=== PATIENT | male | born 1935 | race Caucasian/White ===

== ENCOUNTER → 2017-09-02 12:23 | Outpatient (CLI) | payer MEDICARE, SELFPAY ==
--- NOTE | 2017-09-02 | XR_ITS ---
XR KUB HISTORY: ITS.REASON: INCONTINENCE OF FECES. DIARRHEA ORDERING PHYSICIAN: Jaiden Stroud MD PATIENT AGE: 81 years COMPARISON: None FINDINGS: Unremarkable bowel gas pattern. No evidence of intestinal obstruction or significant amount of formed feces. There are severe degenerative changes of the lumbar spine. IMPRESSION: Degenerative changes lumbar spine, no acute finding
--- NOTE | 2017-09-02 12:53 | CA_ITS ---
PROCEDURE: 2-D M-mode and color Doppler study INDICATIONS FOR THE TEST: Chest pain COPD Heart Murmur Tobacco Smoking Palpitations Fatigue Syncope Edema Hypertension+Diabetes Mellitus Rheumatic Fever SOB RAMOS Obesity Hyperlipidemia+ Family History HD Additional History PATIENT INFORMATION HEIGHT: 70 WEIGHT: 211 GENDER: Male B/P: 110/60 2-D/M-MODE INTERPRETATION: 2-D MEASUREMENTS OBSERVED VALUES IN CMS Right Ventricular Dimension (RVDd) 2.6 Interventricular Septum (Thickness)(IVsd) 1.0 Left Ventricular Internal Dimensions(LVIDd) 4.0 Left Ventricular Posterior Wall (Thickness)(LVPWd) 1.0 Aortic Root 3.1 Aortic Cusp Separation 1.7 Left Atrial Dimensions (LAD) 4.2 2D 1. Left atrium is mildly enlarged, left ventricle is normal size, mild concentric left ventricular hypertrophy, visually estimated ejection fraction 55% with no obvious regional wall motion abnormality. 2. The right atrium and right ventricle is mildly enlarged with normal contractility. 3. The aortic valve is thickened and calcified leaflet continue to display mobility. 4. The mitral and tricuspid valve leaflets are minimally thickened. 5. The pulmonic valve is poorly visualized. 6. No significant pericardial effusion noted. DOPPLER INTERROGATION: Doppler interrogation of the aortic, mitral and tricuspid valvular presence of mild mitral and moderate tricuspid regurgitation, calculated right ventricular systolic pressure is 40 mmHg consistent with mild pulmonary hypertension, grade 1 diastolic dysfunction seen with tissue Doppler evidence of raised left atrial pressure. CONCLUSION: 1. Mildly enlarged left atrium, normal left ventricular size, mild concentric left ventricular hypertrophy, visually estimated ejection fraction 55% with no obvious regional wall motion abnormality, grade 1 diastolic dysfunction seen with tissue Doppler evidence of raised left atrial pressure. 2. Mild mitral and moderate tricuspid regurgitation, calculated right ventricular systolic pressure is 40 mmHg 3. No significant pericardial effusion noted.
== END ==
PROVIDERS: Family Provider Internal Medicine Adolescent Medicine; PCP Internal Medicine Adolescent Medicine; Visit Provider Internal Medicine Adolescent Medicine
DX: R06.09 Other forms of dyspnea (principal); I49.9 Cardiac arrhythmia, unspecified; R15.9 Full incontinence of feces
CPT/HCPCS: 74018; 93225; 93226; 93306

== ENCOUNTER 2020-06-04 13:20 | Observation (INO) | payer MEDICARE, SELFPAY ==
[2020-06-04] VITALS (12 sets, daily range): BP systolic 82–162; BP diastolic 51–83; PULSE 54–75; RESP 18–20; TEMP 36.6–37.1; O2SAT 94–99; BMI 27.1; BMI 20.9
--- NOTE | 2020-06-04 13:26 | HMH.EDGENADL ---
ED Disposition Clinical Impression: Syncope Qualifiers: Syncope type: unspecified Qualified Code(s): R55 - Syncope and collapse Disposition: Admitted as Observation Condition on Discharge: Good Referrals: Jaiden Stroud MD [Primary Care Provider] - - Critical Care Critical Care Time: Yes Attestation: On , the high probability of a clinically significant, sudden or life threatening deterioration of the following system(s) required my full and direct attention, intervention and personal management. The time I documented below is in addition to time spent performing reported procedures but includes the following listed in this critical care notation. Total Critical Care Time: 45 Vital system(s) involved:: Central Nervous System My critical care processes included: Assessment & monitoring of V/S, Initial and Re-exams, Data Review/Interpretation, Coordinating Care, Medication Orders and management, Documentation Medical Decision Making - Medical Records Medical records reviewed: Yes: I reviewed the patient's medical records. - Sunil Inquiry Pt receiving controlled substance: No Vital Signs: 06/04/20 13:21 06/04/20 13:37 06/04/20 13:51 Temperature 97.8 F Temperature Source Oral Pulse Rate [Left Radial] 74 75 Respiratory Rate 20 18 Blood Pressure [Orthostatic Lying Right Arm] 109/68 L Blood Pressure [Orthostatic Standing Right Arm] 82/51 L Blood Pressure [Right Arm] 119/76 119/57 L Blood Pressure Mean [Right Arm] 90 77 Blood Pressure Source [Right Arm] Automatic Cuff Automatic Cuff Blood Pressure Position [Right Arm] Sitting Sitting 02 Sat by Pulse Oximetry 96 95 Oxygen Delivery Method Room Air Room Air 06/04/20 15:04 06/04/20 16:30 06/04/20 17:00 Temperature Temperature Source Pulse Rate [Left Radial] 71 66 70 Respiratory Rate 18 19 Blood Pressure [Orthostatic Lying Right Arm] Blood Pressure [Orthostatic Standing Right Arm] Blood Pressure [Right Arm] 162/81 H 132/59 L 129/82 Blood Pressure Mean [Right Arm] 108 83 97 Blood Pressure Source [Right Arm] Blood Pressure Position [Right Arm] 02 Sat by Pulse Oximetry 94 L 99 96 Oxygen Delivery Method Room Air Room Air Room Air 06/04/20 17:30 Temperature Temperature Source Pulse Rate [Left Radial] 68 Respiratory Rate 20 Blood Pressure [Orthostatic Lying Right Arm] Blood Pressure [Orthostatic Standing Right Arm] Blood Pressure [Right Arm] 136/83 Blood Pressure Mean [Right Arm] 100 Blood Pressure Source [Right Arm] Blood Pressure Position [Right Arm] 02 Sat by Pulse Oximetry 97 Oxygen Delivery Method Room Air - Lab Data Lab Results 06/04/20 13:20: WBC 7.0, RBC 5.07, Hgb 14.5, Hct 45.9, MCV 90.6, MCH 28.6, MCHC 31.6 L, RDW 14.9, Plt Count 279, MPV 7.4, Neut % (Auto) 62.8, Lymph % (Auto) 28.5, [place] % (Auto) 6.7, Eos % (Auto) 1.5, Baso % (Auto) 0.5, Neut # (Auto) 4.4, Lymph # (Auto) 2.0, [place] # (Auto) 0.5, Eos # (Auto) 0.1, Baso # (Auto) 0.0 06/04/20 13:20: Sodium 140, Potassium 4.3, Chloride 105, Carbon Dioxide 30, Anion Gap 9.3, BUN 31 H, Creatinine 1.30 H, Estimated Creat Clear 55, Estimated GFR 53 L, Est GFR ( Amer) 64, Glucose 206 H, Calcium 9.2, Total Bilirubin 0.8, AST 38, ALT 38, Alkaline Phosphatase 146 H, Total Protein 7.0, Albumin 3.7, Globulin 3.3 H, Albumin/Globulin Ratio 1.1 06/04/20 16:53: Urine Color Yellow, Urine Appearance Clear, Urine pH 6.0, Ur Specific [place] 1.015, Urine Protein Negative, Urine Glucose (UA) 2+, Urine Ketones 1+, Urine Blood 1+, Urine Nitrate Negative, Urine Bilirubin Negative, Urine Urobilinogen 0.2, Ur Leukocyte Esterase Negative, Urine RBC 3-5, Urine WBC 5-10, Ur Squamous Epith Cells 5-10, Urine Bacteria Trace Result diagrams: 06/04/20 13:20 06/04/20 13:20 Orders (Tests/Meds): ED MEDICATIONS Generic Name Dose Route Start Last Admin Trade Name Freq PRN Reason Stop Dose Admin Acetaminophen 650 mg 06/04/20 18:11 Acetaminophen 325mg Tab PO 07/04/20 18:10
--- NOTE | 2020-06-04 13:27 | CT_ITS ---
PROCEDURE: CT HEAD/BRAIN WO CON CLINICAL INDICATION: ams Altered mental status, loss of consciousness, headache COMPARISON: No exams were available for comparison TECHNIQUE: Axial images obtained. All CT scans at the facility use one or more dose reduction, viz: automated exposure control, ma/kV adjustment per patient size (including targeted exams where dose is matched to indication, i.e. head), or iterative reconstruction technique. FINDINGS: There is no hydrocephalus. There is no hemorrhage. There is a subtle area of increased density in the left insula. This could represent an acute infarct or underlying mass lesion. MRI with and without contrast is recommended if clinical picture is unclear. There is a small area of encephalomalacia adjacent to the above described lesion is secondary to an old infarct or focal area of prominent chronic ischemic gliotic change. A tiny midline lipoma is incidentally noted. There are dense atherosclerotic calcifications in the left vertebral artery and smaller atherosclerotic calcifications in the right vertebral artery. In there are atherosclerotic calcifications associated with the bilateral internal carotid arteries as they traverse the skull-base. There is fluid in the right mastoid air cells indicating mastoiditis. Visualized portions of the paranasal sinuses are clear. Soft tissue density extends inferior to the occipital for triggering suggesting an area of contusion. IMPRESSION: Left insular abnormality suspicious for infarct versus underlying lesion. Clinical exam and MRI are more sensitive for detection of infarct. MRI with and without contrast could be obtained on emergent basis if clinically indicated or referral for stroke treatment if appropriate. Dictated by: Candis Suarez MD 06/04/2020 15:05 Candis Suarez MD in [facility] 06/04/2020 15:05
[2020-06-04 13:37] LABS: Basophils % 0.5 % (0.1-2.0); Eosinophils # 0.1 K/mm3 (0.0-0.4); Eosinophils % 1.5 % (0.1-12.0); Hematocrit 45.9 % (42.0-52.0); Hemoglobin 14.5 g/dL (14.1-18.0); Lymphocytes % 28.5 % (10-50); Mean Corpuscular HGB Conc 31.6 g/dL (31.8-35.4); Mean Corpuscular Hemoglobin 28.6 pg (27.0-31.2); Mean Corpuscular Volume 90.6 fl (80-94); Mean Platelet Volume 7.4 fl (7.4-10.4); Monocytes # 0.5 K/mm3 (0.1-1.0); Monocytes % 6.7 % (1.7-9.3); Neutrophils # 4.4 K/mm3 (1.8-7.8); Neutrophils % 62.8 % (37.0-80.0); Platelet Count 279 K/mm3 (142-424); Red Blood Count 5.07 M/mm3 (4.60-6.20); Red Cell Distribution Width 14.9 % (11.5-17.5)
[2020-06-04 13:42] LABS: Chloride 105 mmol/L (98-107)
[2020-06-04 13:43] LABS: Potassium 4.3 mmoL/L (3.5-5.1); Sodium 140 mmol/L (136-145)
[2020-06-04 13:45] LABS: Alanine Aminotransferase 38 U/L (12-78); Alkaline Phosphatase 146 U/L (38-126); Aspartate Amino Transferase 38 U/L (17-59); Bilirubin,Total 0.8 mg/dl (0.2-1.3); Blood Urea Nitrogen 31 mg/dl (9-20); Creatinine Clearance Estimated 55 mL/min (50-200); Estimated Glomerular Filt Rate 53 ml/min (>60); GFR (African American) 64 ML/MIN (>60)
[2020-06-04 13:46] LABS: Albumin Level 3.7 g/dl (3.5-5.0); Albumin/Globulin Ratio 1.1 (1.1-1.8); Anion Gap 9.3 mEq/L (5-15); Calcium 9.2 mg/dl (8.4-10.2); Carbon Dioxide 30 mmol/L (22.0-30.0); Globulin 3.3 g/dL (1.3-3.2); Glucose 206 mg/dl (74-100)
--- NOTE | 2020-06-04 13:52 | ECG_ITS ---
APPROVED REPORT Exam: Resting ECG HR:73 bpm ECG Measurements Heart Rate 73 AXES IN 378 P 36 QRSd 114 QRS -74 QT 428 T -4 QTc 471 Conclusion Sinus rhythm with 1st degree AV block Left axis deviation Low voltage QRS Right bundle branch block Abnormal ECG Electronically signed by : Jaiden Stroud, 06/04/2020 17:37:59
--- NOTE | 2020-06-04 15:04 | MR_ITS ---
PROCEDURE: MR HEAD/BRAIN WO/W CON CLINICAL INDICATION: RULE OUT STROKE COMPARISON: The same date TECHNIQUE: Routine multiplanar multi echo sequences are performed without gadolinium enhancement. This 14. Diffusion sequence was obtained. Axial T2 sequence was obtained. FLAIR sequence was performed. There is extensive motion on all sequences some of which are essentially nondiagnostic. No definite acute infarct. There is no abnormal signal in the suspicious area from CT study. There is no visible underlying lesion significant edema or mass effect in the area of the questionable CT finding. FINDINGS: IMPRESSION: Limited exam without definite MRI evidence of acute infarct, correlate clinically. No obvious underlying lesion. Underlying mass unlikely as discussed above. CT with contrast or MRI with contrast could be obtained on a nonemergent basis if clinically indicated. Dictated by: Candis Suarez 06/04/2020 16:11 Candis Suarez in [place] 06/04/2020 16:11
--- NOTE | 2020-06-04 15:32 | PC.NURSE ---
pt gone to mri
--- NOTE | 2020-06-04 15:43 | PC.NURSE ---
Attempted to insert bush cath, unable to do so at this time. MD de la cruz
[2020-06-04 17:02] LABS: Appearance,Urine CLEAR (Clear); Bilirubin,Urine Negative (Negative); Blood, Urine 1+ (Negative); Color,Urine YELLOW (Yellow); Glucose,Urine (UA) 2+ (Negative); Ketones,Urine 1+ (Negative); Leukocyte Esterase,Urine Negative (Negative); Microscopic, Urine URINE MICROSCOPIC (MICROSCOPIC); Nitrate,Urine Negative (Negative); Protein,Urine Negative (Negative); Specific Gravity, Urine 1.015 (1.005-1.030); Urobilinogen,Urine 0.2 EU/dl (0.2)
--- NOTE | 2020-06-04 17:20 | PC.NURSE ---
CODY MEDINA spoke Dr. Leslie at this time
--- NOTE | 2020-06-04 17:26 | PC.NURSE ---
notified rn house supervisor of admission.
[2020-06-04 18:17] LABS: Bacteria,Urine Trace /lpf
--- NOTE | 2020-06-05 00:40 | PC.NURSE ---
Upon assessment, patient's suprapubic area tight, distended, and applying pressure creates pain for the patient. Patient states he feels like he needs to urinate. Patient was incontinent and did have a moderate amount of urine in the bed right before assessment. Attempted to insert size 12 Slovenian coude catheter with no success. Size 8 Slovenian in and out catheter attempted with no success. Catheter seems to coil when inserted. Patient's nurse with me at bedside and stated she will notify the MD.
--- NOTE | 2020-06-05 03:59 | PC.NURSE ---
Pt. arrived to floor via stretcher at 0536
[2020-06-05 04:00] VITALS: BP 162/78; PULSE 59; RESP 20; TEMP 36.6; O2SAT 95
--- NOTE | 2020-06-05 05:43 | PC.NURSE ---
Pt. was able to recognize that he had to urinate. Pt. placed on the bsc and urinated 400ml.
--- NOTE | 2020-06-05 07:46 | HMH.PHAVTE ---
[facility] Pharmacy VTE Monitoring - Patient Demographics Admission date: 06/04/20 Report Date: 06/05/20 Time: 07:46 Allergies/Adverse Reactions: Patient Allergies No Known Allergies Allergy (Verified 05/03/20 15:26) Height: 1.96 m Weight: 80.286 kg Patient Problems: Current Active Problems Syncope (Acute) - VTE Risk Labs: VTE Related Lab Results Hgb 14.5 g/dL (14.1-18.0) 06/04/20 13:20 Hct 45.9 % (42.0-52.0) 06/04/20 13:20 Plt Count 279 K/mm3 (142-424) 06/04/20 13:20 BUN 31 mg/dl (9-20) H 06/04/20 13:20 Creatinine 1.30 mg/dl (0.66-1.25) H 06/04/20 13:20 Estimated Creat Clear 55 mL/min (50-200) 06/04/20 13:20 Was VTE Risk Assessment Performed: Yes VTE Score: 1 VTE Risk Level: Very Low Risk - Prophylaxis VTE Prophylaxis Ordered?: Yes Types of VTE Prophylaxis: IPCS Thigh High Location of Applied Device: Bilateral Lower Extremeties
--- NOTE | 2020-06-05 08:23 | HMH.HP ---
*Admission Date: 06/04/20 *Chief complaint: syncope, dizziness *History of present illness: 84yo M who originally presented to the ER deu to suspected syncopal event. Event occured at home while with his caregiver. He stepped into the shower and went numb/flaccid on left side, eyes rolled back, proceeded to pass out. BP at home unable to be determined, pulses weak. Family was called along with 911. Differential diagnosis includes was not limited to: TIA versus stroke, arrhythmia, sepsis, UTI, intracranial mass. Patient is in no acute distress on initial evaluation. His vital signs are unremarkable. He is appropriate responsive. He is able to answer basic questions and follow commands. Syncope/TIA work-up has been initiated. Radiology called with abnormal report on CT. Discussed clinical presentation with the radiologist and the fact that he would be within the window for treatment. She recommends seeing the patient for stat MRI with and without contrast. MRI was contacted and they were able to take the patient immediately for study. Per family, the patient became somewhat restless on the table and wafer fabrication technician discussed the case with radiologist. The radiologist gave the order to no longer complete the MRI with contrast. The emergency room/myself was not consulted for possible medication to allow the patient to complete the study. MRI per the radiologist as below: Limited exam without definite MRI evidence of acute infarct, correlate clinically. No obvious underlying lesion. Underlying mass. unlikely as discussed above. CT with contrast or MRI with contrast. could be obtained on a nonemergent basis if clinically indicated. Discussed all this with the family at bedside. The plan had been to admit the patient for syncopal event. Given that stroke does not show an acute stroke, will plan to continue forward with this plan. Patient's family request that MRA be completed tomorrow while the patient is still in the facility. [facility] History I have reviewed the patient's past medical history: Yes Medical History: Reports:: Dementia, Diabetes Mellitus Type 2, Hyperlipidemia Denies:: MRSA *Have you ever received a pneumonia vaccine?: Yes *Have you received a flu vaccine this season?: Yes Other Medical History: Reports: Arthritis, Cataracts, Other (alzheimers) Amputation: No - *Social History Smoking Status: Unknown if ever smoked Alcohol Intake: never Substance Use Type: denies use *Occupational Status:: retired Household Members: family *Travel in the last 8 weeks: None Family Hx:: Unable to obtain Review of Systems - Review of Systems Review of systems:: pertinent systems reviewed and negative unless documented below Meds Home Medications Medication Instructions Recorded Confirmed Type atorvastatin 10 mg tablet 10 mg PO DAILY 05/03/20 06/04/20 History donepezil 10 mg tablet 10 mg PO DAILY 05/03/20 06/04/20 History empagliflozin 25 mg-linagliptin 5 1 tab PO DAILY 05/03/20 06/04/20 History mg tablet escitalopram oxalate 5 mg tablet 5 mg PO DAILY 05/03/20 06/04/20 History furosemide 20 mg tablet 20 mg PO DAILY 05/03/20 06/04/20 History hydroxocobalamin 1,000 mcg/mL 1,000 mcg IM WEEKLY 05/03/20 06/04/20 History intramuscular solution memantine 5 mg tablet 5 mg PO HS 05/03/20 06/05/20 History omeprazole magnesium 20 mg 20 mg PO DAILY 05/03/20 06/04/20 History tablet,delayed release zinc 50 mg tablet 50 mg PO DAILY 05/03/20 06/04/20 History Aspirin 81 mg PO DAILY 06/05/20 06/05/20 History Allergies Allergy/AdvReac Type Severity Reaction Status Date / Time No Known Allergies Allergy Verified 05/03/20 15:26 Exam Vital signs and Labs for Last 24 Hours: Temp Pulse Resp BP Pulse Ox 97.8 F 59 L 20 162/78 H 95 06/05/20 04:00 06/05/20 04:00 06/05/20 04:00 06/05/20 04:00 06/05/20 04:00 Laboratory Results - last 24 hr 06/04/20 13:20: WBC 7.0, RBC 5.07, Hgb 14.5, Hct 45.9, MCV 90.6, MCH 28.6
[2020-06-05 08:30] VITALS: BP 176/69; PULSE 62; RESP 17; TEMP 36.4; O2SAT 97
[2020-06-05 08:32] LABS: POC Glucose,Bedside 148 (70-110)
[2020-06-05 11:01] LABS: POC Glucose,Bedside 201 (70-110)
--- NOTE | 2020-06-05 11:40 | PC.NURSE ---
Went in to insert f/c per MD order, pt refused f/c and urinated on the floor and in his bed, linens changed, depends put on pt, no needs at this time.
--- NOTE | 2020-06-05 14:45 | PC.NURSE ---
Pt transported to floor via , report given to paco Nino
[2020-06-05 14:57] LABS: Basophils % 0.5 % (0.1-2.0); Chloride 102 mmol/L (98-107); Eosinophils # 0.1 K/mm3 (0.0-0.4); Eosinophils % 0.8 % (0.1-12.0); Hematocrit 44.1 % (42.0-52.0); Hemoglobin 13.4 g/dL (14.1-18.0); Lymphocytes # 1.3 K/mm3 (0.7-4.5); Lymphocytes % 17.1 % (10-50); Mean Corpuscular HGB Conc 30.5 g/dL (31.8-35.4); Mean Corpuscular Hemoglobin 27.9 pg (27.0-31.2); Mean Corpuscular Volume 91.6 fl (80-94); Mean Platelet Volume 7.8 fl (7.4-10.4); Monocytes # 0.6 K/mm3 (0.1-1.0); Monocytes % 7.5 % (1.7-9.3); Neutrophils # 5.7 K/mm3 (1.8-7.8); Neutrophils % 74.1 % (37.0-80.0); Platelet Count 252 K/mm3 (142-424); Red Blood Count 4.82 M/mm3 (4.60-6.20); Red Cell Distribution Width 14.8 % (11.5-17.5); White Blood Count 7.7 K/mm3 (4.8-10.8)
[2020-06-05 14:58] LABS: Potassium 4.3 mmoL/L (3.5-5.1); Sodium 138 mmol/L (136-145)
[2020-06-05 15:00] LABS: Alanine Aminotransferase 27 U/L (12-78); Aspartate Amino Transferase 30 U/L (17-59); Blood Urea Nitrogen 26 mg/dl (9-20); Creatinine Clearance Estimated 45 mL/min (50-200); Estimated Glomerular Filt Rate 48 ml/min (>60); GFR (African American) 59 ML/MIN (>60)
[2020-06-05 15:01] LABS: Albumin Level 3.6 g/dl (3.5-5.0); Albumin/Globulin Ratio 1.3 (1.1-1.8); Alkaline Phosphatase 131 U/L (38-126); Anion Gap 9.3 mEq/L (5-15); Bilirubin,Total 0.9 mg/dl (0.2-1.3); Calcium 8.9 mg/dl (8.4-10.2); Carbon Dioxide 31 mmol/L (22.0-30.0); Globulin 2.7 g/dL (1.3-3.2); Glucose 208 mg/dl (74-100); Magnesium 2.1 mg/dl (1.6-2.3); Total Protein,Serum 6.3 g/dl (6.3-8.2)
--- NOTE | 2020-06-05 15:43 | HMH.HPDC ---
General - General Admission date:: 06/04/20 Discharge date: 06/05/20 *Admission Date: 06/04/20 *Chief complaint: syncope *History of present illness: 84yo M who originally presented to the ER deu to suspected syncopal event. Event occured at home while with his caregiver. He stepped into the shower and went numb/flaccid on left side, eyes rolled back, proceeded to pass out. BP at home unable to be determined, pulses weak. Family was called along with 911. On arrival to the ER, patient had no appreciated focal deficits but work-up for TIA and syncope initiated. Patient noted to have orthostatic hypotension on orthostatic vitals. Imaging of head showed concern on CT for possible lesion vs stroke in left insular region. MRI obtained, though motion made slight impact on the image and inability to perform MRA. Patient was admitted for further monitoring and to consider sedation with MRA today. Patient did well overnight, had no further events. Had no focal neurologic findings on assessment this morning. View of imaging showed no acute stroke/definitive evidence of acute stroke. On interview this morning patient had stable and appropriate vital signs, appropriate response to questions, and able to answer basic questions and follow commands. [facility] History I have reviewed the patient's past medical history: Yes Medical History: Reports:: Dementia, Diabetes Mellitus Type 2, Hyperlipidemia Denies:: MRSA *Have you ever received a pneumonia vaccine?: Yes *Have you received a flu vaccine this season?: Yes Other Medical History: Reports: Arthritis, Cataracts, Other (alzheimers) Amputation: No - *Social History Smoking Status: Unknown if ever smoked Alcohol Intake: never Substance Use Type: denies use *Occupational Status:: retired Household Members: family *Travel in the last 8 weeks: None Family Hx:: Unable to obtain Review of Systems - Review of Systems Review of systems:: pertinent systems reviewed and negative unless documented below (14 point review of systems performed, pertinent positives and negatives as per HPI) Exam Vital signs and Labs for Last 24 Hours: Temp Pulse Resp BP Pulse Ox 97.5 F L 62 17 176/69 H 97 06/05/20 08:30 06/05/20 08:30 06/05/20 08:30 06/05/20 08:30 06/05/20 08:30 Laboratory Results - last 24 hr 06/04/20 16:53: Urine Color Yellow, Urine Appearance Clear, Urine pH 6.0, Ur Specific [place] 1.015, Urine Protein Negative, Urine Glucose (UA) 2+, Urine Ketones 1+, Urine Blood 1+, Urine Nitrate Negative, Urine Bilirubin Negative, Urine Urobilinogen 0.2, Ur Leukocyte Esterase Negative, Urine RBC 3-5, Urine WBC 5-10, Ur Squamous Epith Cells 5-10, Urine Bacteria Trace 06/05/20 06:41: POC Glucose 148 H 06/05/20 10:54: POC Glucose 201 H 06/05/20 14:29: WBC 7.7, RBC 4.82, Hgb 13.4 L, Hct 44.1, MCV 91.6, MCH 27.9, MCHC 30.5 L, RDW 14.8, Plt Count 252, MPV 7.8, Neut % (Auto) 74.1, Lymph % (Auto) 17.1, [place] % (Auto) 7.5, Eos % (Auto) 0.8, Baso % (Auto) 0.5, Neut # (Auto) 5.7, Lymph # (Auto) 1.3, [place] # (Auto) 0.6, Eos # (Auto) 0.1, Baso # (Auto) 0.0 06/05/20 14:29: Sodium 138, Potassium 4.3, Chloride 102, Carbon Dioxide 31 H, Anion Gap 9.3, BUN 26 H, Creatinine 1.40 H, Estimated Creat Clear 45, Estimated GFR 48 L, Est GFR ( Amer) 59, Glucose 208 H, Calcium 8.9, Magnesium 2.1, Total Bilirubin 0.9, AST 30, ALT 27 D, Alkaline Phosphatase 131 H, Total Protein 6.3, Albumin 3.6, Globulin 2.7, Albumin/Globulin Ratio 1.3 I & O for Last 24 hours: Intake & Output 06/02/20 06/03/20 06/04/20 06/05/20 23:59 23:59 23:59 23:59 Intake Total 480 / 480 Output Total 400 / 400 Balance 80 / 80 Weight 80.286 kg Microbiology Reports for the Last 24 Hours: Microbiology 06/04/20 17:30 Nasopharyngeal Coronavirus COVID-19 PCR - Final - Constitutional no acute distress - *Routine HEENT Exam Head: Present: normocephalic Eye: Present: EOMI, PERRL ENT: Present: mucous membranes moist
[2020-06-05 16:00] VITALS: BP 170/65; PULSE 67; RESP 18; TEMP 36.8; O2SAT 98
== END 2020-06-05 17:00 | disposition home or self-care (01) ==
LOC: ER 18:30 → ICU 22:08 → 2ND 06-05 15:17
PROVIDERS: Internal Medicine Adolescent Medicine; Admitting Provider Family Medicine; Emergency Provider Family Medicine; PCP Internal Medicine Adolescent Medicine; Visit Provider Internal Medicine Adolescent Medicine
DX: R55 Syncope and collapse (principal); U07.1 COVID-19; E11.9 Type 2 diabetes mellitus without complications; E78.5 Hyperlipidemia, unspecified; Z79.899 Other long term (current) drug therapy
CPT/HCPCS: 36415; 70450; 70551; 80053; 81001; 82962; 83735; 85025; 93005; 99285; G0378; U0003

== ENCOUNTER → 2020-09-21 12:38 | Outpatient (CLI) | payer MEDICARE, SELFPAY ==
[2020-09-21 13:06] LABS: Basophils % 0.4 % (0.1-2.0); Eosinophils # 0.1 K/mm3 (0.0-0.4); Hematocrit 38.3 % (42.0-52.0); Hemoglobin 12.6 g/dL (14.1-18.0); Lymphocytes # 1.2 K/mm3 (0.7-4.5); Lymphocytes % 17.9 % (10-50); Mean Corpuscular HGB Conc 32.9 g/dL (31.8-35.4); Mean Corpuscular Hemoglobin 29.2 pg (27.0-31.2); Mean Corpuscular Volume 88.8 fl (80-94); Mean Platelet Volume 7.9 fl (7.4-10.4); Monocytes # 0.5 K/mm3 (0.1-1.0); Neutrophils # 4.7 K/mm3 (1.8-7.8); Neutrophils % 72.7 % (37.0-80.0); Platelet Count 210 K/mm3 (142-424); Red Blood Count 4.32 M/mm3 (4.60-6.20); Red Cell Distribution Width 14.7 % (11.5-17.5); White Blood Count 6.5 K/mm3 (4.8-10.8)
[2020-09-21 13:33] LABS: Hemoglobin A1C 8.3 % (4.0-6.0)
[2020-09-21 13:35] LABS: Alanine Aminotransferase 20 U/L (12-78); Albumin Level 3.4 g/dl (3.5-5.0); Albumin/Globulin Ratio 1.4 (1.1-1.8); Alkaline Phosphatase 160 U/L (38-126); Anion Gap 13.1 mEq/L (5-15); Aspartate Amino Transferase 25 U/L (17-59); Bilirubin,Total 0.8 mg/dl (0.2-1.3); Blood Urea Nitrogen 32 mg/dl (9-20); Calcium 8.1 mg/dl (8.4-10.2); Carbon Dioxide 26 mmol/L (22.0-30.0); Chloride 102 mmol/L (98-107); Chol/HDL Ratio 2.6 (1-3.5); Cholesterol 103 mg/dl (140-200); Estimated Glomerular Filt Rate 64 ml/min (>60); GFR (African American) 77 ML/MIN (>60); Globulin 2.4 g/dL (1.3-3.2); Glucose 184 mg/dl (74-100); HDL Cholesterol 40 mg/dl (40-60); Potassium 5.1 mmoL/L (3.5-5.1); Sodium 136 mmol/L (136-145); Total Protein,Serum 5.8 g/dl (6.3-8.2); Triglycerides 66 mg/dl (30-150); VLDL Cholesterol 13 mg/dL (0-40)
[2020-09-21 13:46] LABS: Direct LDL Cholesterol 49.64 mg/dL (100-129)
== END ==
PROVIDERS: Visit Provider Internal Medicine Adolescent Medicine
DX: E11.39 Type 2 diabetes mellitus with other diabetic ophthalmic complication (principal); E78.5 Hyperlipidemia, unspecified
CPT/HCPCS: 36415; 80053; 80061; 83036; 85025

== ENCOUNTER 2020-10-06 19:53 | Observation (INO) | payer MEDICARE, SELFPAY ==
[2020-10-06] VITALS (8 sets, daily range): BP systolic 85–121; BP diastolic 37–54; PULSE 67–93; RESP 17–18; TEMP 36.8–37.3; O2SAT 93–98; BMI 25.5; BMI 26.9
--- NOTE | 2020-10-06 19:52 | XR_ITS ---
PROCEDURE INFORMATION: Exam: XR Chest Exam date and time: 10/06/2020 7:52 PM Age: 84 years old Clinical indication: Patient HX: Fever, best images due to PT not able to follow breathing instructions TECHNIQUE: Imaging protocol: XR of the chest. Views: 1 view. COMPARISON: CR KUB XR KUB 09/02/2017 12:36 PM FINDINGS: Lungs: Airspace opacity noted in the medial aspect of the upper left lung. Right lung base subsegmental atelectasis. Pleural spaces: Small right-sided pleural effusion. Heart/Mediastinum: Unremarkable. No cardiomegaly. Bones/joints: Unremarkable. IMPRESSION: 1. Upper left lung infiltrate may represent pneumonia. Limited exam due to rotation. 2. Right lung base atelectasis and minor right-sided pleural fluid.
--- NOTE | 2020-10-06 19:52 | ECG_ITS ---
APPROVED REPORT Exam: Resting ECG HR:101 bpm ECG Measurements Heart Rate 101 AXES QRSd 104 QRS -81 QT 360 T 28 QTc 466 Conclusion Accelerated Junctional rhythm with retrograde conduction Left axis deviation Low voltage QRS Incomplete right bundle branch block Possible Anterolateral infarct, age undetermined Abnormal ECG Electronically signed by : Jaiden Stroud, 10/07/2020 17:21:42
[2020-10-06 20:18] LABS: Alanine Aminotransferase 31 U/L (12-78); Albumin Level 3.4 g/dl (3.5-5.0); Alkaline Phosphatase 161 U/L (38-126); Anion Gap 13.3 mEq/L (5-15); Aspartate Amino Transferase 30 U/L (17-59); Bilirubin,Direct 0.1 mg/dl (0.0-0.4); Bilirubin,Indirect 1.1 mg/dL (0.0-0.9); Bilirubin,Total 1.2 mg/dl (0.2-1.3); Bilirubin,Unconjugated 1.1 mg/dL (0.0-1.1); Blood Urea Nitrogen 32 mg/dl (9-20); Calcium 8.1 mg/dl (8.4-10.2); Carbon Dioxide 26 mmol/L (22.0-30.0); Chloride 103 mmol/L (98-107); Creatinine Clearance Estimated 40 mL/min (50-200); Estimated Glomerular Filt Rate 45 ml/min (>60); GFR (African American) 54 ML/MIN (>60); Glucose 255 mg/dl (74-100); Potassium 5.3 mmoL/L (3.5-5.1); Sodium 137 mmol/L (136-145); Total Protein,Serum 6.1 g/dl (6.3-8.2)
--- NOTE | 2020-10-06 20:18 | HMH.EDFEV ---
ED Disposition Clinical Impression: Severe sepsis with acute organ dysfunction, Phimosis of penis CAP (community acquired pneumonia) Qualifiers: Laterality: left Lung location: upper lobe of lung Qualified Code(s): J18.9 - Pneumonia, unspecified organism Diabetes mellitus Qualifiers: Diabetes mellitus type: type 2 Diabetes mellitus snf insulin use: unspecified snf insulin use status Diabetes mellitus complication status: with other specified complication Qualified Code(s): E11.69 - Type 2 diabetes mellitus with other specified complication Disposition: Admitted as Observation Condition on Discharge: Fair Referrals: Jaiden Stroud MD [Primary Care Provider] - - Critical Care Critical Care Time: No Attestation: On 10/06/20, the high probability of a clinically significant, sudden or life threatening deterioration of the following system(s) required my full and direct attention, intervention and personal management. The time I documented below is in addition to time spent performing reported procedures but includes the following listed in this critical care notation. Medical Decision Making - Medical Records Medical records reviewed: Yes: I reviewed the patient's medical records. - Sunil Inquiry Pt receiving controlled substance: No Vital Signs: 10/06/20 19:46 10/06/20 20:16 Temperature 99.2 F Temperature Source Oral Pulse Rate 89 Pulse Rate [Right Brachial] 93 H Respiratory Rate 18 17 Blood Pressure 97/52 L Blood Pressure [Right Arm] 85/37 L Blood Pressure Mean [Right Arm] 53 Blood Pressure Source Automatic Cuff Blood Pressure Source [Right Arm] Automatic Cuff Blood Pressure Position Sitting Blood Pressure Position [Right Arm] Sitting 02 Sat by Pulse Oximetry 98 94 L Oxygen Delivery Method Room Air Room Air - Lab Data Lab results reviewed: Yes: I reviewed the patient's lab results. Lab Results 10/06/20 19:58: WBC 7.8, RBC 4.77, Hgb 13.8 L, Hct 43.0, MCV 90.2, MCH 28.9, MCHC 32.1, RDW 14.8, Plt Count 216, MPV 7.9, Neut % (Auto) 90.2 H, Lymph % (Auto) 4.6 L, [place] % (Auto) 4.8, Eos % (Auto) 0.2, Baso % (Auto) 0.2, Neut # (Auto) 7.1, Lymph # (Auto) 0.4 L, [place] # (Auto) 0.4, Eos # (Auto) 0.0, Baso # (Auto) 0.0, Total Counted 100, Neutrophils % (Manual) 76, Band Neutrophils % 15.0 H, Lymphocytes % (Manual) 2 L, Atypical Lymphs % 1.0, Monocytes % (Manual) 6, Platelet Estimate Normal, RBC Morphology Normal, ESR 18 10/06/20 19:58: Sodium 137, Potassium 5.3 H, Chloride 103, Carbon Dioxide 26, Anion Gap 13.3, BUN 32 H, Creatinine 1.50 H, Estimated Creat Clear 40, Estimated GFR 45 L, Est GFR ( Amer) 54 L, Glucose 255 H, Calcium 8.1 L, Total Bilirubin 1.2, Direct Bilirubin 0.1, Conjugated Bilirubin 0.0, Indirect Bilirubin 1.1 H, Unconjugated Bilirubin 1.1, AST 30, ALT 31, Alkaline Phosphatase 161 H, Troponin I < 0.01, C-Reactive Protein 21.3 H, Total Protein 6.1 L, Albumin 3.4 L, Procalcitonin 0.775 10/06/20 19:58: Lactate 1.9 10/06/20 19:58: NT-Pro-B Natriuret Pep 1080 H Result diagrams: 10/06/20 19:58 10/06/20 19:58 Orders (Tests/Meds): ED MEDICATIONS Generic Name Dose Route Start Last Admin Trade Name Freq PRN Reason Stop Dose Admin Lactated Ringer's 1,000 mls @ 999 mls/hr 10/06/20 20:15 10/06/20 20:20 Lactated Ringer's 1000 Ml Bag IV 10/06/20 21:15 999 mls/hr .Q1H1M CUONG Administration ORDERS Category Date Time Status Diarrhea 6-11 Panel, Cdiff PCR Stat Lab 10/06/20 20:26 Ordered Troponin I Q3H Lab 10/06/20 23:00 Ordered Troponin I Q3H Lab 10/07/20 02:00 Ordered Urinalysis and Microscopic Stat Lab 10/06/20 19:52 Ordered Blood Culture Stat Micro 10/06/20 19:58 Received - Radiology Data #1 Image(s): Chest Image Reviewed: Yes I reviewed the patient's radiology image Preliminary Findings: Abnormal (see report ) - Physician Consults Physician Consulted: darin Reason -: Admission Medical Decision Narrative: reported fever and has l
[2020-10-06 20:19] LABS: Lactic Acid 1.9 mmol/L (0.7-2.1)
[2020-10-06 20:20] LABS: Basophils % 0.2 % (0.1-2.0); Eosinophils % 0.2 % (0.1-12.0); Hemoglobin 13.8 g/dL (14.1-18.0); Lymphocytes # 0.4 K/mm3 (0.7-4.5); Lymphocytes % 4.6 % (10-50); Mean Corpuscular HGB Conc 32.1 g/dL (31.8-35.4); Mean Corpuscular Hemoglobin 28.9 pg (27.0-31.2); Mean Corpuscular Volume 90.2 fl (80-94); Mean Platelet Volume 7.9 fl (7.4-10.4); Monocytes # 0.4 K/mm3 (0.1-1.0); Monocytes % 4.8 % (1.7-9.3); Neutrophils # 7.1 K/mm3 (1.8-7.8); Neutrophils % 90.2 % (37.0-80.0); Platelet Count 216 K/mm3 (142-424); Red Blood Count 4.77 M/mm3 (4.60-6.20); Red Cell Distribution Width 14.8 % (11.5-17.5); White Blood Count 7.8 K/mm3 (4.8-10.8)
[2020-10-06 20:23] LABS: MANUAL DIFFERENTIAL MANUAL DIFFERENTIAL (MANUAL DIFF)
[2020-10-06 20:24] LABS: C-Reactive Protein 21.3 mg/L (0-4)
[2020-10-06 20:30] LABS: NT Pro Brain Natriuretic Pep. 1080 pg/mL (0-450)
[2020-10-06 20:34] LABS: Lymphocytes % 2 % (10-50); Monocytes % 6 % (2-9); Neutrophils % 76 % (42-76); Platelet Estimate Normal; RBC Morphology Normal; Total Cells Counted 100; Troponin I < 0.01 ng/ml (0.00-0.034)
[2020-10-06 20:37] LABS: Procalcitonin 0.775 ng/mL (0.0-2.0)
[2020-10-06 20:45] LABS: Erythrocyte Sedimentation Rate 18 mm/hr (0-20)
--- NOTE | 2020-10-06 21:20 | PC.NURSE ---
Dr. Mere aleman for Dr. Leslie
--- NOTE | 2020-10-06 21:23 | PC.NURSE ---
Dr. Leslie on phone with Dr. Severino
--- NOTE | 2020-10-06 21:25 | PC.NURSE ---
md on phone with pcp
[2020-10-06 21:33] LABS: Coronavirus 19, PCR Not Detected (NotDetected); Influenza A, PCR Not Detected (NotDetected); Influenza B, PCR Not Detected (NotDetected)
--- NOTE | 2020-10-06 22:44 | PC.NURSE ---
PT ARRIVED TO FLOOR VIA STRETCHER FROM ED W/STAFF AT [id number]
[2020-10-07 04:00] VITALS: BP 117/56; PULSE 60; RESP 18; TEMP 36.9; O2SAT 96
[2020-10-07 05:18] LABS: POC Glucose,Bedside 148 (70-110)
[2020-10-07 07:21] LABS: Microscopic, Urine URINE MICROSCOPIC (MICROSCOPIC)
[2020-10-07 07:23] LABS: Appearance,Urine CLEAR (Clear); Bilirubin,Urine Negative (Negative); Blood, Urine Negative (Negative); Color,Urine YELLOW (Yellow); Glucose,Urine (UA) Negative (Negative); Ketones,Urine Negative (Negative); Leukocyte Esterase,Urine Negative (Negative); Nitrate,Urine Negative (Negative); Protein,Urine 1+ (Negative); Specific Gravity, Urine >= 1.030 (1.005-1.030); Urobilinogen,Urine 0.2 EU/dl (0.2)
[2020-10-07 07:40] LABS: Basophils % 0.1 % (0.1-2.0); Eosinophils # 0.1 K/mm3 (0.0-0.4); Eosinophils % 1.9 % (0.1-12.0); Hematocrit 35.4 % (42.0-52.0); Mean Corpuscular HGB Conc 33.3 g/dL (31.8-35.4); Mean Corpuscular Hemoglobin 29.7 pg (27.0-31.2); Mean Corpuscular Volume 89.3 fl (80-94); Mean Platelet Volume 7.6 fl (7.4-10.4); Monocytes # 0.4 K/mm3 (0.1-1.0); Monocytes % 5.5 % (1.7-9.3); Neutrophils # 5.8 K/mm3 (1.8-7.8); Neutrophils % 79.5 % (37.0-80.0); Platelet Count 192 K/mm3 (142-424); Red Blood Count 3.97 M/mm3 (4.60-6.20); Red Cell Distribution Width 14.7 % (11.5-17.5); White Blood Count 7.2 K/mm3 (4.8-10.8)
[2020-10-07 07:43] LABS: Hemoglobin 11.8 g/dL (14.1-18.0)
--- NOTE | 2020-10-07 07:45 | XR_ITS ---
PROCEDURE INFORMATION: Exam: XR Left Wrist Exam date and time: 10/07/2020 7:45 AM Age: 84 years old Clinical indication: Injury or trauma; Blunt trauma (contusions or hematomas); Left; Patient HX: Fall before bring admitted to hospital. Pain in wrist; Additional info: Fall at home TECHNIQUE: Imaging protocol: XR Left wrist. Views: 3 or more views. COMPARISON: No relevant prior studies available. 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 There is no evidence of acute fracture. There is no evidence of joint malalignment or dislocation. Soft tissues: Soft tissue swelling is present. IMPRESSION: 1. 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 2. No evidence of acute fracture. 3. No evidence of acute dislocation. 4. Soft tissue swelling is present.
--- NOTE | 2020-10-07 07:45 | HMH.HP ---
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 Brought to the emergency department. Labs look fairly innocuous but was found to have an infiltrate in the right upper lung field on chest x-ray. Admitted to hospital for IV antibiotics. Daughter also notes that he had a fall at home 3 or 4 days ago, his left wrist is somewhat swollen even though he denies pain. Otherwise this morning on rounds was feeling much better. [facility] History I have reviewed the patient's past medical history: Yes Medical History: Reports:: Dementia, Diabetes Mellitus Type 2, Hyperlipidemia Denies:: Cancer, Diabetes Mellitus Type 1, MRSA *Have you ever received a pneumonia vaccine?: Yes *Have you received a flu vaccine this season?: Yes Other Medical History: Reports: Arthritis, Cataracts (removed 15+ years ago), Other (COVID-19 infection March 2020) Other Surgeries: Yes: No Previous Surgery Amputation: No - *Social History Last grade of school completed: Advanced degree Smoking Status: Unknown if ever smoked Alcohol Intake: never Substance Use Type: denies use *Occupational Status:: retired Housing: house Household Members: spouse *Travel in the last 8 weeks: None Family Hx:: No significant family history Review of Systems - Review of Systems Review of systems:: unable to obtain - *Neurologic Reports weakness, Denies localized weakness, Denies seizure-like activity Meds Home Medications Medication Instructions Recorded Confirmed Type atorvastatin 10 mg tablet 10 mg PO DAILY 05/03/20 10/06/20 History donepezil 10 mg tablet 10 mg PO DAILY 05/03/20 10/06/20 History escitalopram oxalate 5 mg tablet 5 mg PO DAILY 05/03/20 10/06/20 History memantine 5 mg tablet 5 mg PO HS 05/03/20 10/06/20 History omeprazole magnesium 20 mg 20 mg PO DAILY 05/03/20 10/06/20 History tablet,delayed release zinc 50 mg tablet 50 mg PO DAILY 05/03/20 10/06/20 History Aspirin 81 mg PO DAILY 06/05/20 10/06/20 History ascorbic acid (vitamin C) 1,000 mg 1 g PO Q6H 08/02/20 10/06/20 History tablet cyanocobalamin (vitamin B-12) 1,000 mcg IM WEEKLY ml 08/02/20 10/06/20 History 1,000 mcg/mL injection solution furosemide 20 mg tablet 20 mg PO DAILY PRN 08/02/20 10/06/20 History melatonin 5 mg capsule 3 mg PO DAILY cap 08/02/20 10/06/20 History sitagliptin 50 mg tablet 50 mg PO DAILY 08/02/20 10/06/20 History Tamsulosin HCl [Flomax 0.4mg 0.4 mg PO HS 10/06/20 10/06/20 History capsule] Allergies Allergy/AdvReac Type Severity Reaction Status Date / Time No Known Allergies Allergy Verified 08/02/20 14:52 Exam Vital signs and Labs for Last 24 Hours: Temp Pulse Resp BP Pulse Ox 98.4 F 60 18 117/56 L 96 10/07/20 04:00 10/07/20 04:00 10/07/20 04:00 10/07/20 04:00 10/07/20 04:00 Laboratory Results - last 24 hr 10/06/20 19:55: SARS-CoV-2 (PCR) Not detected, Influenza A Untype (PCR) Not detected, Influenza Type B (PCR) Not detected 10/06/20 19:58: WBC 7.8, RBC 4.77, Hgb 13.8 L, Hct 43.0, MCV 90.2, MCH 28.9, MCHC 32.1, RDW 14.8, Plt Count 216, MPV 7.9, Neut % (Auto) 90.2 H, Lymph % (Auto) 4.6 L, [place] % (Auto) 4.8, Eos % (Auto) 0.2, Baso % (Auto) 0.2, Neut # (Auto) 7.1, Lymph # (Auto) 0.4 L, [place] # (Auto) 0.4, Eos # (Auto) 0.0, Baso # (Auto) 0.0, Total Counted 100, Neutrophils % (Manual) 76, Band Neutrophils % 15.0 H, Lymphocytes % (Manual) 2 L, Atypical Lymphs % 1.0, Monocytes % (Manual) 6, Platelet Estimate Normal, RBC Morphology Normal, ESR 18 06/19/21 19:58: Sodium 137, Potassium 5.3 H, Chloride 103, Carbon Dioxide 26, Anion Gap 13.3, BUN 32 H, Creatinine 1.50 H, Estimated Creat Clear 40, Estimated GFR 45 L, Est GFR ( Amer) 54 L, Glucose 255 H,
[2020-10-07 07:54] LABS: Chloride 107 mmol/L (98-107); Potassium 4.9 mmoL/L (3.5-5.1); Sodium 137 mmol/L (136-145)
[2020-10-07 07:57] LABS: Anion Gap 11.9 mEq/L (5-15); Blood Urea Nitrogen 34 mg/dl (9-20); Carbon Dioxide 23 mmol/L (22.0-30.0); Creatinine Clearance Estimated 48 mL/min (50-200); Estimated Glomerular Filt Rate 48 ml/min (>60); GFR (African American) 59 ML/MIN (>60)
[2020-10-07 07:58] LABS: Calcium 7.6 mg/dl (8.4-10.2); Glucose 135 mg/dl (74-100)
[2020-10-07 08:00] VITALS: BP 135/88; PULSE 73; RESP 20; TEMP 36.4; O2SAT 96
--- NOTE | 2020-10-07 08:53 | HMH.PHAVTE ---
[facility] Pharmacy VTE Monitoring - Patient Demographics Admission date: 10/06/20 Report Date: 10/07/20 Time: 08:53 Allergies/Adverse Reactions: Patient Allergies No Known Allergies Allergy (Verified 08/02/20 14:52) Height: 1.78 m Weight: 84.992 kg Patient Problems: Current Active Problems CAP (community acquired pneumonia) (Acute) Severe sepsis with acute organ dysfunction (Acute) Phimosis of penis (Acute) Dementia (Acute) Swelling of left wrist (Acute) Diabetes mellitus (Chronic) - VTE Risk Labs: VTE Related Lab Results Hgb 11.8 g/dL (14.1-18.0) L D 10/07/20 07:25 Hct 35.4 % (42.0-52.0) L 10/07/20 07:25 Plt Count 192 K/mm3 (142-424) 10/07/20 07:25 BUN 34 mg/dl (9-20) H 10/07/20 07:25 Creatinine 1.40 mg/dl (0.66-1.25) H 10/07/20 07:25 Estimated Creat Clear 48 mL/min (50-200) 10/07/20 07:25 Was VTE Risk Assessment Performed: Yes VTE Risk Level: Low Risk Clinical Trial Participant: No - Prophylaxis VTE Prophylaxis Ordered?: Yes Types of VTE Prophylaxis: TEDS Knee High
--- NOTE | 2020-10-07 08:57 | HMH.PHAINT ---
HOME MEDICATION LIST VERIFICATION ATTEMPTED USING LIST FROM [facility]
[2020-10-07 11:25] LABS: POC Glucose,Bedside 170 (70-110)
--- NOTE | 2020-10-07 14:59 | PC.WOUNDNOTE ---
Pt alert to self. Sitting up in chair at this time. Family @ bedside VSS. Meds given per jun. Have spoke with Rocio in radiology to check on x ray results and as of this time 1500, they are still awaiting to be read. CB in reach. Lungs diminished in bases. Janice, bs x 4. Mx continues. Does have BLE pitting edema. Pt has walked with assistance to bathroom with walker. Pt has had a bm and urinated this shift as well.
[2020-10-07 15:07] VITALS: BP 162/84; PULSE 54; RESP 16; TEMP 36.6; O2SAT 96
[2020-10-07 16:04] LABS: POC Glucose,Bedside 153 (70-110)
[2020-10-07 20:00] VITALS: BP 168/73; PULSE 69; RESP 18; TEMP 36.9; O2SAT 97
--- NOTE | 2020-10-07 22:45 | PC.NURSE ---
[address] PATIENT AWAKE AND UP TO TOILET . TRASH AND LINENS EMPTIED. PATIENT REQUESTED CHEESE AND CRACKERS
[2020-10-08] VITALS: BP 164/78; PULSE 68; RESP 18; TEMP 36.6; O2SAT 96
[2020-10-08 00:44] LABS: POC Glucose,Bedside 172 (70-110)
[2020-10-08 00:53] LABS: Adenovirus F 40/41, stool Not Detected (NotDetected); Astrovirus Not Detected (NotDetected); Campylobacter Not Detected (NotDetected); Clostridium Difficile A/B, PCR Not Detected (NotDetected); Cryptosporidium Not Detected (NotDetected); Cyclospora Cayetanesis Not Detected (NotDetected); Entamoeba histolytica Not Detected (NotDetected); Enteroaggregative E coli Not Detected (NotDetected); Enteropathogenic E coli Not Detected (NotDetected); Enterotoxigenic E coli Not Detected (NotDetected); Giardia lamblia Not Detected (NotDetected); Norovirus Not Detected (NotDetected); Plesimonas Shigalloides, PCR Not Detected (NotDetected); Rotavirus A Not Detected (NotDetected); Salmonella, PCR Not Detected (NotDetected); Sapovirus Not Detected (NotDetected); Shiga-like toxin E coli Not Detected (NotDetected); Shigella Enterovasive E coli Not Detected (NotDetected); Vibrio Cholerae Not Detected (NotDetected); Vibrio, PCR Not Detected (NotDetected); Yersinia Entercolitica, PCR Not Detected (NotDetected)
[2020-10-08 04:00] VITALS: BP 146/62; PULSE 68; RESP 17; TEMP 36.9; O2SAT 94
--- NOTE | 2020-10-08 04:47 | PC.NURSE ---
pt is pleasantly confused. alert to self. pt ambulates with assist and walker to bathroom. pt has been incontinent and continent throughout shift. several loose bowel movements tonight. sample was obtained with negative results. iv patent and infusing per order. bed alarm is on. call light in reach. vss. will continue to monitor.
[2020-10-08 05:00] VITALS: BMI 29.4
[2020-10-08 05:33] LABS: POC Glucose,Bedside 95 (70-110)
[2020-10-08 05:53] LABS: Basophils % 0.2 % (0.1-2.0); Eosinophils # 0.2 K/mm3 (0.0-0.4); Eosinophils % 2.1 % (0.1-12.0); Hematocrit 35.7 % (42.0-52.0); Hemoglobin 11.6 g/dL (14.1-18.0); Lymphocytes # 1.5 K/mm3 (0.7-4.5); Lymphocytes % 19.4 % (10-50); Mean Corpuscular HGB Conc 32.4 g/dL (31.8-35.4); Mean Corpuscular Volume 89.5 fl (80-94); Mean Platelet Volume 7.8 fl (7.4-10.4); Monocytes # 0.6 K/mm3 (0.1-1.0); Monocytes % 7.6 % (1.7-9.3); Neutrophils # 5.3 K/mm3 (1.8-7.8); Neutrophils % 70.7 % (37.0-80.0); Platelet Count 197 K/mm3 (142-424); Red Blood Count 3.99 M/mm3 (4.60-6.20); Red Cell Distribution Width 14.7 % (11.5-17.5); White Blood Count 7.5 K/mm3 (4.8-10.8)
[2020-10-08 05:58] LABS: Chloride 109 mmol/L (98-107); Sodium 137 mmol/L (136-145)
[2020-10-08 06:01] LABS: Blood Urea Nitrogen 22 mg/dl (9-20); Calcium 7.5 mg/dl (8.4-10.2); Carbon Dioxide 21 mmol/L (22.0-30.0); Creatinine Clearance Estimated 61 mL/min (50-200); Estimated Glomerular Filt Rate 64 ml/min (>60); GFR (African American) 77 ML/MIN (>60); Glucose 98 mg/dl (74-100)
--- NOTE | 2020-10-08 06:32 | PC.NURSE ---
[address] PATIENT AWAKE AND UP TO BATHROOM. TRASH EMPTIED AND ICE WATER EMPTIED
--- NOTE | 2020-10-08 07:46 | HMH.DCSUM ---
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 Brought to the emergency department. Labs look fairly innocuous but was found to have an infiltrate in the right upper lung field on chest x-ray. Admitted to hospital for IV antibiotics. Daughter also notes that he had a fall at home 3 or 4 days ago, his left wrist is somewhat swollen even though he denies pain. Otherwise this morning on rounds was feeling much better. Hospital Course Hospital Course: Patient was admitted, initiated on azithromycin and ceftriaxone. Did well with this, no further fevers. White count improved, the rest of his labs remained essentially normal for his baseline. This morning he was doing well. Had already taken his IV out because I do not need it anymore. Wished to be discharged and his daughter concurs that he is back to his baseline. Exam remained essentially unremarkable vis-?-vis lung exam. Plan will be to discharge home on Omnicef. I will follow him in our normal housecall rounds. Objective Vital signs: Temp Pulse Resp BP Pulse Ox 98.4 F 68 17 146/62 H 94 L 10/08/20 04:00 10/08/20 04:00 10/08/20 04:00 10/08/20 04:00 10/08/20 04:00 no acute distress - *Routine HEENT Exam Head: Present: normocephalic Eye: Present: EOMI, PERRL ENT: Present: mucous membranes moist - *Routine Neck Exam Present: supple - *Routine Respiratory Exam Present: CTA bilaterally - *Routine Cardiovascular Exam Present: RRR - *Routine Abdominal Exam Present: soft, normoactive bowel sounds. Absent: tenderness - *Routine Extremities Exam Absent: cyanosis, clubbing, edema - *Routine Skin Exam Present: warm. Absent: rash - *Routine Neurological Exam Present: alert, moving all extremities, vision grossly intact, hearing grossly intact - Detailed Eye Exam Eyelids: Bilateral normal inspection Results Labs on day of discharge: Labs from last 24 hours 10/08/20 10/08/20 10/08/20 05:32 05:32 05:24 WBC 7.5 RBC 3.99 L Hgb 11.6 L Hct 35.7 L MCV 89.5 MCH 29.0 MCHC 32.4 RDW 14.7 Plt Count 197 MPV 7.8 Neut % (Auto) 70.7 Lymph % (Auto) 19.4 [place] % (Auto) 7.6 Eos % (Auto) 2.1 Baso % (Auto) 0.2 Neut # (Auto) 5.3 Lymph # (Auto) 1.5 [place] # (Auto) 0.6 Eos # (Auto) 0.2 Baso # (Auto) 0.0 Sodium 137 Potassium 4.0 Chloride 109 H Carbon Dioxide 21 L Anion Gap 11.0 BUN 22 H D Creatinine 1.10 D Estimated Creat Clear 61 Estimated GFR 64 Est GFR ( Amer) 77 D Glucose 98 D POC Glucose 95 Calcium 7.5 L Stl Aeromonas (PCR) Stl C. cayetanensis PCR Stool Rotavirus (PCR) Stl Adenov F 40/41 PCR Stool Astrovirus (PCR) Stool Campylobacter PCR Stl C.difficile Tox PCR Stool Cryptosporidium PCR Stl E.coli Shiga Tox PCR Stool E coli O157 PCR Stl Enterotoxigenic E PCR Stool EPEC (PCR) Stool EAEC (PCR) Stl E. histolytica PCR Stool Giardia Lamblia PCR Stool Salmonella PCR Stool Sapovirus (PCR) Stl P. shigelloides PCR Stl Shigella/EIEC PCR St Y.enterocolitica PCR Stool Vibrio (PCR) Stl Vibrio cholerae PCR Stl Norovirus GI/GII PCR 10/08/20 10/07/20 10/07/20 00:31 20:30 15:43 WBC RBC Hgb Hct MCV MCH MCHC RDW Plt Count MPV Neut % (Auto) Lymph % (Auto) [place] % (Auto) Eos % (Auto) Baso % (Auto) Neut # (Auto) Lymph # (Auto) [place] # (Auto) Eos # (Auto) Baso # (Auto) Sodium Potassium Chloride Carbon Dioxide Anion Gap BUN Creatinine Estimated Creat Clear Estimated GFR Est GF
== END 2020-10-08 08:20 | disposition home or self-care (01) ==
LOC: ER 21:27 → 2ND 21:35
PROVIDERS: Admitting Provider Family Medicine; Emergency Provider Emergency Medicine; PCP Internal Medicine Adolescent Medicine; Visit Provider Internal Medicine Adolescent Medicine
DX: J18.9 Pneumonia, unspecified organism (principal); Z86.16 Personal history of COVID-19; E11.9 Type 2 diabetes mellitus without complications; N47.1 Phimosis; F03.90 Unspecified dementia, unspecified severity, without behavioral disturbance, psychotic disturbance, mood disturbance, and anxiety; Z91.81 History of falling; Z79.899 Other long term (current) drug therapy; R06.09 Other forms of dyspnea
CPT/HCPCS: 71045; 73110; 80048; 80076; 81001; 82962; 83605; 83880; 84145; 84484; 85007; 85025; 85651; 86140; 87040; 87506; 93005; 96365; 96375; 99284; G0378; J0456; U0003

== ENCOUNTER → 2021-01-17 07:39 | Outpatient (CLI) | payer MEDICARE, SELFPAY ==
--- NOTE | 2021-01-17 07:45 | CA_ITS ---
APPROVED REPORT Right Lower Extremity Venous Study for DVT. Press Tender Short Goods: Ashwini Rahman, MEDINAT Indications Lower Extremity Pain: Right Lower Extremity Edema: Right RT LEG PAIM,EDEMA Vein Imaging CFV (R): compressive, spontaneous, phasic, augmentation FEM (R): compressive, spontaneous, phasic, augmentation POP (R): compressive, spontaneous, phasic, augmentation PTV (R): Compressible GSV (R): Compressible Peroneals (R):Compressible GAS (R): Compressible Findings Study suggests no evidence of DVT or SVT of the right lower extremity. Conclusion Study suggests no evidence of DVT or SVT of the right lower extremity. Electronically signed by : Adolfo Vidal MD 01/17/2021 16:17:51
[2021-01-17 08:40] LABS: Basophils % 0.5 % (0.1-2.0); Eosinophils # 0.1 K/mm3 (0.0-0.4); Eosinophils % 1.9 % (0.1-12.0); Hematocrit 39.1 % (42.0-52.0); Hemoglobin 12.6 g/dL (14.1-18.0); Lymphocytes # 1.9 K/mm3 (0.7-4.5); Lymphocytes % 26.4 % (10-50); Mean Corpuscular HGB Conc 32.2 g/dL (31.8-35.4); Mean Corpuscular Hemoglobin 30.2 pg (27.0-31.2); Mean Corpuscular Volume 93.7 fl (80-94); Mean Platelet Volume 8.5 fl (7.4-10.4); Monocytes # 0.5 K/mm3 (0.1-1.0); Monocytes % 6.7 % (1.7-9.3); Neutrophils # 4.7 K/mm3 (1.8-7.8); Neutrophils % 64.5 % (37.0-80.0); Platelet Count 175 K/mm3 (142-424); Red Blood Count 4.17 M/mm3 (4.60-6.20); Red Cell Distribution Width 14.3 % (11.5-17.5); White Blood Count 7.3 K/mm3 (4.8-10.8)
[2021-01-17 09:02] LABS: D-Dimer 1.58 ug/mL (0.0-0.5)
[2021-01-17 09:11] LABS: Hemoglobin A1C 9.7 % (4.0-6.0)
[2021-01-17 09:42] LABS: Alanine Aminotransferase 20 U/L (12-78); Albumin Level 3.1 g/dl (3.5-5.0); Albumin/Globulin Ratio 1.1 (1.1-1.8); Alkaline Phosphatase 138 U/L (38-126); Anion Gap 12.2 mEq/L (5-15); Aspartate Amino Transferase 34 U/L (17-59); Bilirubin,Total 1.1 mg/dl (0.2-1.3); Blood Urea Nitrogen 21 mg/dl (9-20); Calcium 8.1 mg/dl (8.4-10.2); Carbon Dioxide 25 mmol/L (22.0-30.0); Chloride 107 mmol/L (98-107); Chol/HDL Ratio 2.6 (1-3.5); Cholesterol 93 mg/dl (140-200); Estimated Glomerular Filt Rate 80 ml/min (>60); GFR (African American) 97 ML/MIN (>60); Globulin 2.8 g/dL (1.3-3.2); Glucose 133 mg/dl (74-100); HDL Cholesterol 36 mg/dl (40-60); Potassium 5.2 mmoL/L (3.5-5.1); Sodium 139 mmol/L (136-145); Total Protein,Serum 5.9 g/dl (6.3-8.2); Triglycerides 84 mg/dl (30-150); VLDL Cholesterol 17 mg/dL (0-40)
[2021-01-17 09:53] LABS: Direct LDL Cholesterol 44.21 mg/dL (100-129)
== END ==
PROVIDERS: PCP Internal Medicine Adolescent Medicine; Visit Provider Internal Medicine Adolescent Medicine
DX: M79.604 Pain in right leg (principal); R60.9 Edema, unspecified; E11.39 Type 2 diabetes mellitus with other diabetic ophthalmic complication; E78.5 Hyperlipidemia, unspecified; I10 Essential (primary) hypertension
CPT/HCPCS: 36415; 80053; 80061; 83036; 85025; 85378; 93971

== ENCOUNTER 2021-04-25 01:07 | Observation (INO) | payer MEDICARE, SELFPAY ==
[2021-04-25 01:21] VITALS: BP 145/71; PULSE 65; RESP 18; TEMP 36.6; O2SAT 98; BMI 29.1
[2021-04-25 02:43] LABS: Occult Blood,Stool Positive (Negative)
[2021-04-25 02:47] LABS: Chloride 103 mmol/L (98-107); Potassium 4.7 mmoL/L (3.5-5.1); Sodium 139 mmol/L (136-145)
[2021-04-25 02:49] LABS: Amylase 33 U/L (30-110); Blood Urea Nitrogen 29 mg/dl (9-20)
[2021-04-25 02:50] LABS: Alanine Aminotransferase 27 U/L (12-78); Alkaline Phosphatase 174 U/L (38-126); Anion Gap 10.7 mEq/L (5-15); Aspartate Amino Transferase 29 U/L (17-59); Bilirubin,Direct 0.1 mg/dl (0.0-0.4); Bilirubin,Indirect 0.5 mg/dL (0.0-0.9); Bilirubin,Total 0.6 mg/dl (0.2-1.3); Bilirubin,Unconjugated 0.5 mg/dL (0.0-1.1); Calcium 8.1 mg/dl (8.4-10.2); Carbon Dioxide 30 mmol/L (22.0-30.0); Creatinine Clearance Estimated 44 mL/min (50-200); Estimated Glomerular Filt Rate 45 ml/min (>60); GFR (African American) 54 ML/MIN (>60); Glucose 247 mg/dl (74-100)
[2021-04-25 02:52] LABS: Albumin Level 3.4 g/dl (3.5-5.0); Total Protein,Serum 6.1 g/dl (6.3-8.2)
[2021-04-25 02:56] LABS: C-Reactive Protein 1.2 mg/L (0-4)
[2021-04-25 03:20] LABS: Troponin I < 0.01 ng/ml (0.00-0.034)
[2021-04-25 03:23] LABS: Basophils % 0.8 % (0.1-2.0); Eosinophils # 0.1 K/mm3 (0.0-0.4); Hematocrit 42.1 % (42.0-52.0); Hemoglobin 12.8 g/dL (14.1-18.0); Lymphocytes # 1.7 K/mm3 (0.7-4.5); Lymphocytes % 32.2 % (10-50); Mean Corpuscular HGB Conc 30.4 g/dL (31.8-35.4); Mean Corpuscular Hemoglobin 29.1 pg (27.0-31.2); Mean Corpuscular Volume 95.8 fl (80-94); Mean Platelet Volume 8.8 fl (7.4-10.4); Monocytes # 0.4 K/mm3 (0.1-1.0); Monocytes % 6.9 % (1.7-9.3); Neutrophils # 3.1 K/mm3 (1.8-7.8); Neutrophils % 58.1 % (37.0-80.0); Platelet Count 213 K/mm3 (142-424); Red Cell Distribution Width 14.4 % (11.5-17.5); White Blood Count 5.3 K/mm3 (4.8-10.8)
--- NOTE | 2021-04-25 03:34 | HMH.EDGIBL ---
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 The time I documented below is in addition to time spent performing reported procedures but includes the following listed in this critical care notation. Medical Decision Making - Medical Records Medical records reviewed: Yes: I reviewed the patient's medical records. - Sunil Inquiry Pt receiving controlled substance: No Vital Signs: 04/25/21 01:21 Temperature 97.9 F Temperature Source Oral Pulse Rate [Left] 65 Respiratory Rate 18 Blood Pressure [Right Arm] 145/71 H Blood Pressure Mean [Right Arm] 95 02 Sat by Pulse Oximetry 98 - Lab Data Lab results reviewed: Yes: I reviewed the patient's lab results. Lab Results 04/25/21 01:51: WBC 5.3, RBC 4.40 L, Hgb 12.8 L, Hct 42.1, MCV 95.8 H, MCH 29.1, MCHC 30.4 L, RDW 14.4, Plt Count 213, MPV 8.8, Neut % (Auto) 58.1, Lymph % (Auto) 32.2, [place] % (Auto) 6.9, Eos % (Auto) 2.0, Baso % (Auto) 0.8, Neut # (Auto) 3.1, Lymph # (Auto) 1.7, [place] # (Auto) 0.4, Eos # (Auto) 0.1, Baso # (Auto) 0.0 04/25/21 01:51: Sodium 139, Potassium 4.7, Chloride 103, Carbon Dioxide 30, Anion Gap 10.7, BUN 29 H, Creatinine 1.50 H, Estimated Creat Clear 44, Estimated GFR 45 L, Est GFR ( Amer) 54 L, Glucose 247 H, Calcium 8.1 L, Total Bilirubin 0.6, Direct Bilirubin 0.1, Conjugated Bilirubin 0.0, Indirect Bilirubin 0.5, Unconjugated Bilirubin 0.5, AST 29, ALT 27, Alkaline Phosphatase 174 H, Troponin I < 0.01, C-Reactive Protein 1.2, Total Protein 6.1 L, Albumin 3.4 L, Amylase 33 04/25/21 01:51: Stool Occult Blood Positive A Result diagrams: 04/25/21 01:51 04/25/21 01:51 Orders (Tests/Meds): ED MEDICATIONS Generic Name Dose Route Start Last Admin Trade Name Freq PRN Reason Stop Dose Admin Sodium Chloride 1,000 mls @ 999 mls/hr 04/25/21 02:15 04/25/21 02:38 Sod Chlor 0.9% 1000ml Bag IV 04/25/21 03:15 999 mls/hr .Q1H1M CUONG Administration Sodium Chloride 1,000 mls @ 100 mls/hr 04/25/21 03:45 04/25/21 04:04 Sod Chlor 0.9% 1000ml Bag IV 04/25/21 13:44 100 mls/hr .Q10H CUONG Administration Discontinued Medications Generic Name Dose Route Start Last Admin Trade Name Freq PRN Reason Stop Dose Admin Ondansetron HCl 4 mg 04/25/21 02:10 04/25/21 02:38 Ondansetron 4mg/2ml Vial IV 04/25/21 02:11 4 mg ONCE ONE Administration ORDERS Category Date Time Status Erythrocyte Sedimentation Rate Stat Lab 04/25/21 01:51 Received Lipase Stat Lab 04/25/21 01:51 Received Procalcitonin Stat Lab 04/25/21 01:51 Received Troponin I Q3H Lab 04/25/21 05:15 Ordered Troponin I Q3H Lab 04/25/21 08:15 Ordered Urinalysis and Microscopic Stat Lab 04/25/21 02:10 Ordered - Physician Consults Physician Consulted: dinorah Reason -: Admission Medical Decision Narrative: pt with acute brrb will admit at this time and monitor h/h and bmp GI Bleed HPI - General Chief complaint: GI Bleed Stated complaint: Rectal Bleed Time Seen by Provider: 04/25/21 03:00 Mode of Arrival: Ambulatory Source of Information: Patient, Medical Record Limitations: No Limitations Description of Symptoms (Recalled from ER Triage Doc. by RN): pt family reports the pt has had rectal bleed about an hour bright red blood found with a bowel movement by home health care social worker. pt does not
[2021-04-25 04:13] LABS: Coronavirus 19, PCR Not Detected (NotDetected); Influenza A, PCR Not Detected (NotDetected); Influenza B, PCR Not Detected (NotDetected)
[2021-04-25 04:32] LABS: Procalcitonin 0.073 ng/mL (0.0-2.0)
[2021-04-25 04:39] LABS: Erythrocyte Sedimentation Rate 55 mm/hr (0-20)
[2021-04-25 05:05] VITALS: BP 141/64; PULSE 73; RESP 22; O2SAT 96
[2021-04-25 05:14] VITALS: BP 137/105; PULSE 76; RESP 14; TEMP 36.6; O2SAT 92
--- NOTE | 2021-04-25 05:20 | PC.NURSE ---
pt admitted at 0505 to 262 from ER, pt had bowel movement upon arrival, no blood in stool, stool brown, will continue to monitor
[2021-04-25 05:55] LABS: Lipase 42 U/L (23-300)
--- NOTE | 2021-04-25 07:45 | P.CONPHA_ITS ---
[facility] Pharmacy VTE Monitoring - Patient Demographics Admission date: 04/25/21 Report Date: 04/25/21 Time: 07:45 Allergies/Adverse Reactions: Patient Allergies No Known Allergies Allergy (Verified 02/28/21 14:13) Height: 1.7 m Weight: 84.368 kg Patient Problems: Current Active Problems Lower gastrointestinal hemorrhage (Acute) Renal insufficiency (Acute) Diabetes mellitus (Chronic) - VTE Risk Labs: VTE Related Lab Results Hgb 12.8 g/dL (14.1-18.0) L 04/25/21 01:51 Hct 42.1 % (42.0-52.0) 04/25/21 01:51 Plt Count 213 K/mm3 (142-424) 04/25/21 01:51 BUN 29 mg/dl (9-20) H 04/25/21 01:51 Creatinine 1.50 mg/dl (0.66-1.25) H 04/25/21 01:51 Estimated Creat Clear 44 mL/min (50-200) 04/25/21 01:51 Clinical Trial Participant: No - Prophylaxis VTE Prophylaxis Ordered?: Yes Types of VTE Prophylaxis: TEDS Knee High
[2021-04-25 08:00] VITALS: BP 128/53; PULSE 73; RESP 15; TEMP 36.4; O2SAT 94
[2021-04-25 08:31] VITALS: BMI 28.6
--- NOTE | 2021-04-25 09:17 | HMH.HP ---
*Admission Date: 04/25/21 *Chief complaint: Rectal bleeding *History of present illness: 85-year-old male who struggles with significant dementia, homebound with care from family and caregivers, also has type 2 diabetes and chronic diarrhea. Yesterday evening his caregiver noticed an extensive amount of blood both bright red liquid blood and some dark maroon-colored stool in his diaper and in the toilet bowl. His blood pressure was also in the 90s. Brought him to the hospital for evaluation. In the emergency department hemoglobin was 12, he had no visible blood and was not having abdominal pain or fever or vomiting. CT scan was determined to be a good diagnostic test but GFR was slightly low and patient was admitted to the hospital for hydration, serial CBCs and evaluation for CT scan and possible further intervention as tolerated. His daughter reports he has had 1 other stool since being admitted, it seems to be melanotic but not voluminous. [facility] History I have reviewed the patient's past medical history: Yes Medical History: Reports:: Dementia, Diabetes Mellitus Type 2, Hyperlipidemia Denies:: Cancer, Diabetes Mellitus Type 1, MRSA *Have you ever received a pneumonia vaccine?: Yes *Have you received a flu vaccine this season?: Yes Other Medical History: Reports: Arthritis, Cataracts, Other Other Surgeries: Yes: No Previous Surgery Amputation: No - *Social History Smoking Status: Former smoker Alcohol Intake: never Substance Use Type: denies use *Occupational Status:: retired Housing: house Household Members: spouse *Travel in the last 8 weeks: None Family Hx:: No significant family history Review of Systems - Review of Systems Review of systems:: unable to obtain - *Neurologic Denies seizure-like activity Meds Home Medications Medication Instructions Recorded Confirmed Type atorvastatin 10 mg tablet 10 mg PO 05/03/20 04/25/21 History donepezil 10 mg tablet 10 mg PO DAILY 05/03/20 04/25/21 History escitalopram oxalate 5 mg tablet 5 mg PO DAILY 05/03/20 04/25/21 History memantine 5 mg tablet 5 mg PO HS 05/03/20 04/25/21 History omeprazole magnesium 20 mg 20 mg PO DAILY 05/03/20 04/25/21 History tablet,delayed release zinc 50 mg tablet 50 mg PO DAILY 05/03/20 04/25/21 History Aspirin 81 mg PO DAILY 06/05/20 04/25/21 History ascorbic acid (vitamin C) 1,000 mg 1 g PO DAILY 08/02/20 04/25/21 History tablet cyanocobalamin (vitamin B-12) 1,000 mcg IM MONTHLY ml 08/02/20 04/25/21 History 1,000 mcg/mL injection solution furosemide 20 mg tablet 20 mg PO DAILY PRN 08/02/20 04/25/21 History melatonin 5 mg capsule 5 mg PO DAILY cap 08/02/20 04/25/21 History Tamsulosin HCl [Flomax 0.4mg 0.4 mg PO HS 10/06/20 04/25/21 History capsule] sitagliptin 100 mg tablet 100 mg PO DAILY 02/28/21 04/25/21 History Allergies Allergy/AdvReac Type Severity Reaction Status Date / Time No Known Allergies Allergy Verified 02/28/21 14:13 Exam Vital signs and Labs for Last 24 Hours: Temp Pulse Resp BP Pulse Ox 97.8 F 76 14 137/105 H 96 04/25/21 05:14 04/25/21 05:14 04/25/21 05:14 04/25/21 05:14 04/25/21 05:05 Laboratory Results - last 24 hr 04/25/21 01:51: WBC 5.3, RBC 4.40 L, Hgb 12.8 L, Hct 42.1, MCV 95.8 H, MCH 29.1, MCHC 30.4 L, RDW 14.4, Plt Count 213, MPV 8.8, Neut % (Auto) 58.1, Lymph % (Auto) 32.2, [place] % (Auto) 6.9, Eos % (Auto) 2.0, Baso % (Auto) 0.8, Neut # (Auto) 3.1, Lymph # (Auto) 1.7, [place] # (Auto) 0.4, Eos # (Auto) 0.1, Baso # (Auto) 0.0 04/25/21 01:51: Sodium 139, Potassium 4.7, Chloride 103, Carbon Dioxide 30, Anion Gap 10.7, BUN 29 H, Creatinine 1.50 H, Estimated Creat Clear 44, Estimated GFR 45 L, Est GFR ( Amer) 54 L, Glucose 247 H, Calcium 8.1 L, Total Bilirubin 0.6, Direct Bilirubin 0.1, Conjugated Bilirubin 0.0, Indirect Bilirubin 0.5, Unconjugated Bilirubin 0.5, AST 29, ALT 27, Alkaline Phosphatase 174 H, Troponin I < 0.01, C-Reactive Protein 1.2, Total Protein 6.1 L,
[2021-04-25 09:27] LABS: Basophils % 0.6 % (0.1-2.0); Eosinophils # 0.1 K/mm3 (0.0-0.4); Eosinophils % 1.4 % (0.1-12.0); Hematocrit 37.1 % (42.0-52.0); Hemoglobin 11.7 g/dL (14.1-18.0); Lymphocytes # 1.8 K/mm3 (0.7-4.5); Lymphocytes % 31.8 % (10-50); Mean Corpuscular HGB Conc 31.5 g/dL (31.8-35.4); Mean Corpuscular Hemoglobin 30.1 pg (27.0-31.2); Mean Corpuscular Volume 95.4 fl (80-94); Mean Platelet Volume 8.6 fl (7.4-10.4); Monocytes # 0.4 K/mm3 (0.1-1.0); Monocytes % 6.5 % (1.7-9.3); Neutrophils # 3.5 K/mm3 (1.8-7.8); Neutrophils % 59.8 % (37.0-80.0); Platelet Count 203 K/mm3 (142-424); Red Blood Count 3.89 M/mm3 (4.60-6.20); Red Cell Distribution Width 14.6 % (11.5-17.5); White Blood Count 5.8 K/mm3 (4.8-10.8)
[2021-04-25 09:36] LABS: Anion Gap 5.3 mEq/L (5-15); Blood Urea Nitrogen 27 mg/dl (9-20); Calcium 7.9 mg/dl (8.4-10.2); Carbon Dioxide 33 mmol/L (22.0-30.0); Chloride 105 mmol/L (98-107); Creatinine Clearance Estimated 54 mL/min (50-200); Estimated Glomerular Filt Rate 58 ml/min (>60); GFR (African American) 70 ML/MIN (>60); Glucose 145 mg/dl (74-100); Potassium 4.3 mmoL/L (3.5-5.1); Sodium 139 mmol/L (136-145)
--- NOTE | 2021-04-25 09:47 | CT_ITS ---
FINAL REPORT TECHNIQUE: After the administration of oral and intravenous contrast, axial images were obtained through the abdomen and pelvis by computed tomography. The study was performed with techniques to keep radiation dose as low as reasonably achievable, (ALARA). Individual dose reduction techniques using automated exposure control or adjustment of mA and/or kV according to the patient's size were employed. CLINICAL HISTORY: GI bleed FINDINGS: Abdomen: There is scarring at the lung bases. A small sliding-type hiatal hernia is seen. The liver parenchyma is homogeneous. The gallbladder is incompletely distended. The spleen, pancreas, adrenals and kidneys appear unremarkable. The aorta is normal in caliber. There is extensive descending and sigmoid diverticulosis with no evidence of diverticulitis. Pelvis: The appendix is not identified. There is apparent, marked mucosal thickening in the inferior rectum. Mucosal thickening measures 2.2 cm in thickness. This is well seen on image 122 of series 3 and may be related to prior Wilkin. Infiltrative neoplasm is also a consideration. The urinary bladder is unremarkable. There is no free fluid or adenopathy. IMPRESSION: 1. Extensive diverticulosis with no evidence of diverticulitis. 2. Circumferential mucosal thickening of the inferior rectum may be related to proctitis. Infiltrative neoplasm is also a consideration. Reviewed, Interpreted and Dictated by Jf Avelar MD Transcribed by Rissa Jones Authenticated by Jf Avelar MD on 04/25/2021 03:54:[address] [facility]
--- NOTE | 2021-04-25 09:47 | HMH.PHAINT ---
Verified medications with [facility]
[2021-04-25 10:02] LABS: POC Glucose,Bedside 204 (70-110)
--- NOTE | 2021-04-25 11:43 | PC.NURSE ---
oral contrast in. Notified radiology
--- NOTE | 2021-04-25 13:49 | PC.NURSE ---
pt to CT scan with 8th grade teacher (Gennaro De Luna)
[2021-04-25 16:00] VITALS: BP 160/68; PULSE 75; RESP 16; O2SAT 95
[2021-04-25 16:55] LABS: POC Glucose,Bedside 222 (70-110)
--- NOTE | 2021-04-25 16:56 | HMH.ACPN2 ---
Internal Medicine - PN: Isabel *Date: 04/25/21 *Time: 16:56 Interval history: Patient's labs remained stable after fluid infusion today. Hemoglobin dropped by only 1 g. Kidney function improved and allowed him to have CT scan of abdomen and pelvis with contrast. Exam Vital signs and Labs for Last 24 Hours: Temp Pulse Resp BP Pulse Ox 97.6 F 75 16 160/68 H 95 04/25/21 08:00 04/25/21 16:00 04/25/21 16:00 04/25/21 16:00 04/25/21 16:00 Laboratory Results - last 24 hr 04/25/21 01:51: WBC 5.3, RBC 4.40 L, Hgb 12.8 L, Hct 42.1, MCV 95.8 H, MCH 29.1, MCHC 30.4 L, RDW 14.4, Plt Count 213, MPV 8.8, Neut % (Auto) 58.1, Lymph % (Auto) 32.2, [place] % (Auto) 6.9, Eos % (Auto) 2.0, Baso % (Auto) 0.8, Neut # (Auto) 3.1, Lymph # (Auto) 1.7, [place] # (Auto) 0.4, Eos # (Auto) 0.1, Baso # (Auto) 0.0 04/25/21 01:51: Sodium 139, Potassium 4.7, Chloride 103, Carbon Dioxide 30, Anion Gap 10.7, BUN 29 H, Creatinine 1.50 H, Estimated Creat Clear 44, Estimated GFR 45 L, Est GFR ( Amer) 54 L, Glucose 247 H, Calcium 8.1 L, Total Bilirubin 0.6, Direct Bilirubin 0.1, Conjugated Bilirubin 0.0, Indirect Bilirubin 0.5, Unconjugated Bilirubin 0.5, AST 29, ALT 27, Alkaline Phosphatase 174 H, Troponin I < 0.01, C-Reactive Protein 1.2, Total Protein 6.1 L, Albumin 3.4 L, Amylase 33 04/25/21 01:51: Stool Occult Blood Positive A 04/25/21 01:51: ESR 55 H 04/25/21 01:51: Lipase 42, Procalcitonin 0.073 04/25/21 03:57: SARS-CoV-2 (PCR) Not detected, Influenza A Untype (PCR) Not detected, Influenza Type B (PCR) Not detected 04/25/21 06:44: POC Glucose 204 H 04/25/21 09:05: WBC 5.8, RBC 3.89 L, Hgb 11.7 L, Hct 37.1 L, MCV 95.4 H, MCH 30.1, MCHC 31.5 L, RDW 14.6, Plt Count 203, MPV 8.6, Neut % (Auto) 59.8, Lymph % (Auto) 31.8, [place] % (Auto) 6.5, Eos % (Auto) 1.4, Baso % (Auto) 0.6, Neut # (Auto) 3.5, Lymph # (Auto) 1.8, [place] # (Auto) 0.4, Eos # (Auto) 0.1, Baso # (Auto) 0.0 04/25/21 09:05: Sodium 139, Potassium 4.3, Chloride 105, Carbon Dioxide 33 H, Anion Gap 5.3, BUN 27 H, Creatinine 1.20, Estimated Creat Clear 54, Estimated GFR 58 L, Est GFR ( Amer) 70 D, Glucose 145 H D, Calcium 7.9 L 04/25/21 16:20: POC Glucose 222 H I & O for Last 24 hours: Intake & Output 04/23/21 04/24/21 04/25/21 04/26/21 11:59 11:59 11:59 11:59 Weight 182 lb 6 oz Narrative: Patient sleeping, color looks good, abdomen remains nontender. Has had multiple frequent bright red blood stool output through the day according to nursing staff. Assessment and Plan (1) Lower gastrointestinal hemorrhage Status: Acute Category: Medical Code(s): K92.2 - Gastrointestinal hemorrhage, unspecified (2) Renal insufficiency Status: Acute Category: Medical Code(s): N28.9 - Disorder of kidney and ureter, unspecified (3) Diabetes mellitus Status: Chronic Qualifiers: Diabetes mellitus type: type 2 Diabetes mellitus [facility] insulin use: unspecified [facility] insulin use status Diabetes mellitus complication status: with other specified complication Qualified Code(s): E11.69 - Type 2 diabetes mellitus with other specified complication Category: Medical Code(s): E11.9 - Type 2 diabetes mellitus without complications (4) Dementia Status: Acute Category: Medical Code(s): F03.90 - Unspecified dementia without behavioral disturbance (5) Sigmoid diverticulitis Status: Acute Category: Medical Code(s): K57.32 - Diverticulitis of large intestine without perforation or abscess without bleeding - Assessment and plan all Dx Assessment and Plan for all problems:: Significant bleeding. Reviewed CT scan with daughter. Significant diverticulitis without evidence of diverticulosis and proctitis. I do not think surgical intervention would be indicated given his advanced age and dementia and poor overall prognosis. I also do not think endoscopy would be reasonable at this point given high risk of perforation. I will have surgery consult just to have
[2021-04-25 20:00] VITALS: BP 153/58; PULSE 66; RESP 16; TEMP 36.6; O2SAT 96
[2021-04-25 20:36] LABS: POC Glucose,Bedside 162 (70-110)
[2021-04-26 05:36] LABS: POC Glucose,Bedside 224 (70-110)
[2021-04-26 07:38] LABS: Basophils % 0.1 % (0.1-2.0); Eosinophils % 0.4 % (0.1-12.0); Lymphocytes # 0.5 K/mm3 (0.7-4.5); Lymphocytes % 8.7 % (10-50); Mean Corpuscular HGB Conc 31.6 g/dL (31.8-35.4); Mean Corpuscular Hemoglobin 29.9 pg (27.0-31.2); Mean Corpuscular Volume 94.4 fl (80-94); Mean Platelet Volume 10.7 fl (7.4-10.4); Monocytes # 0.2 K/mm3 (0.1-1.0); Monocytes % 2.4 % (1.7-9.3); Neutrophils # 5.4 K/mm3 (1.8-7.8); Neutrophils % 88.4 % (37.0-80.0); Platelet Count 204 K/mm3 (142-424); Red Blood Count 4.02 M/mm3 (4.60-6.20); Red Cell Distribution Width 14.5 % (11.5-17.5); White Blood Count 6.1 K/mm3 (4.8-10.8)
[2021-04-26 07:45] LABS: MANUAL DIFFERENTIAL MANUAL DIFFERENTIAL (MANUAL DIFF)
[2021-04-26 07:48] LABS: Alanine Aminotransferase 21 U/L (12-78); Albumin Level 3.2 g/dl (3.5-5.0); Albumin/Globulin Ratio 1.2 (1.1-1.8); Alkaline Phosphatase 182 U/L (38-126); Anion Gap 14.1 mEq/L (5-15); Aspartate Amino Transferase 34 U/L (17-59); Bilirubin,Total 0.9 mg/dl (0.2-1.3); Blood Urea Nitrogen 22 mg/dl (9-20); Calcium 8.4 mg/dl (8.4-10.2); Carbon Dioxide 19 mmol/L (22.0-30.0); Chloride 107 mmol/L (98-107); Creatinine Clearance Estimated 64 mL/min (50-200); Estimated Glomerular Filt Rate 80 ml/min (>60); GFR (African American) 97 ML/MIN (>60); Globulin 2.6 g/dL (1.3-3.2); Glucose 227 mg/dl (74-100); Potassium 5.1 mmoL/L (3.5-5.1); Sodium 135 mmol/L (136-145); Total Protein,Serum 5.8 g/dl (6.3-8.2)
[2021-04-26 08:00] VITALS: BP 163/87; PULSE 80; RESP 18; TEMP 37.1; O2SAT 97
[2021-04-26 08:29] LABS: Lymphocytes % 8 % (10-50); Monocytes % 2 % (2-9); Neutrophils % 90 % (42-76); Platelet Estimate Normal; RBC Morphology Normal; Total Cells Counted 100
--- NOTE | 2021-04-26 09:35 | PC.NURSE ---
Notified Surgery suite of consult on pt.
--- NOTE | 2021-04-26 10:00 | HMH.ACPN2 ---
Internal Medicine - PN: Subj *Date: 04/26/21 *Time: 10:00 Interval history: 85-year-old male with concern for diverticular bleed/GI bleed. Did well overnight. Remains hemodynamically stable. Continues to have some dark stools but labs reviewed this morning showing stable hemoglobin. Tolerating full liquid diet this morning. Spoke to daughter over the phone this morning, updated of plan. Patient denies any belly pain, shortness of breath, nausea or vomiting. Stable on room air. Exam Vital signs and Labs for Last 24 Hours: Temp Pulse Resp BP Pulse Ox 98.8 F 80 18 163/87 H 97 04/26/21 08:00 04/26/21 08:00 04/26/21 08:00 04/26/21 08:00 04/26/21 08:00 Laboratory Results - last 24 hr 04/25/21 06:44: POC Glucose 204 H 04/25/21 16:20: POC Glucose 222 H 04/25/21 20:01: POC Glucose 162 H 04/26/21 05:28: POC Glucose 224 H 04/26/21 06:15: WBC 6.1, RBC 4.02 L, Hgb 12.0 L, Hct 38.0 L, MCV 94.4 H, MCH 29.9, MCHC 31.6 L, RDW 14.5, Plt Count 204, MPV 10.7 H, Neut % (Auto) 88.4 H, Lymph % (Auto) 8.7 L, [place] % (Auto) 2.4, Eos % (Auto) 0.4, Baso % (Auto) 0.1, Neut # (Auto) 5.4, Lymph # (Auto) 0.5 L, [place] # (Auto) 0.2, Eos # (Auto) 0.0, Baso # (Auto) 0.0, Total Counted 100, Neutrophils % (Manual) 90 H, Lymphocytes % (Manual) 8 L, Monocytes % (Manual) 2, Platelet Estimate Normal, RBC Morphology Normal 04/26/21 06:15: Sodium 135 L, Potassium 5.1, Chloride 107, Carbon Dioxide 19 L, Anion Gap 14.1, BUN 22 H, Creatinine 0.90 D, Estimated Creat Clear 64, Estimated GFR 80, Est GFR ( Amer) 97 D, Glucose 227 H D, Calcium 8.4, Total Bilirubin 0.9, AST 34, ALT 21, Alkaline Phosphatase 182 H, Total Protein 5.8 L, Albumin 3.2 L, Globulin 2.6, Albumin/Globulin Ratio 1.2 I & O for Last 24 hours: Intake & Output 04/23/21 04/24/21 04/25/21 04/26/21 23:59 23:59 23:59 23:59 Intake Total 1200 / 1200 100 / 100 Output Total 350 / 350 Balance 1200 / 1200 -250 / -250 Weight 82.724 kg Narrative: - Constitutional no acute distress, chronically ill appearing - *Routine HEENT Exam Head: Present: normocephalic Eye: Present: EOMI, PERRL ENT: Present: mucous membranes moist - *Routine Neck Exam Present: supple. Absent: lymphadenopathy - *Routine Respiratory Exam Present: CTA bilaterally - *Routine Cardiovascular Exam Present: RRR - *Routine Abdominal Exam Present: soft, normoactive bowel sounds. Absent: tenderness - *Routine Extremities Exam Absent: cyanosis, clubbing, edema - *Routine Skin Exam Present: warm. Absent: rash - *Routine Neurological Exam Present: alert, oriented X2 Assessment and Plan (1) Lower gastrointestinal hemorrhage Status: Acute Category: Medical Code(s): K92.2 - Gastrointestinal hemorrhage, unspecified (2) Renal insufficiency Status: Acute Category: Medical Code(s): N28.9 - Disorder of kidney and ureter, unspecified (3) Diabetes mellitus Status: Chronic Qualifiers: Diabetes mellitus type: type 2 Diabetes mellitus [facility] insulin use: unspecified [facility] insulin use status Diabetes mellitus complication status: with other specified complication Qualified Code(s): E11.69 - Type 2 diabetes mellitus with other specified complication Category: Medical Code(s): E11.9 - Type 2 diabetes mellitus without complications (4) Dementia Status: Acute Category: Medical Code(s): F03.90 - Unspecified dementia without behavioral disturbance (5) Sigmoid diverticulitis Status: Acute Category: Medical Code(s): K57.32 - Diverticulitis of large intestine without perforation or abscess without bleeding - Assessment and plan all Dx Assessment and Plan for all problems:: 85-year-old male with concern for GI bleed. Differential diagnosis includes bleeding diverticuli, proctitis, upper GI bleed. Hemoglobin remained stable, no indication for transfusion. Given advanced age, no indication for intervention such as surgery. Risk of perforation eleva
--- NOTE | 2021-04-26 10:35 | HMH.DCSUM ---
General - General Admission date:: 04/25/21 Discharge date: 04/26/21 HPI HPI: 85-year-old male who struggles with significant dementia, homebound with care from family and caregivers, also has type 2 diabetes and chronic diarrhea. Yesterday evening his caregiver noticed an extensive amount of blood both bright red liquid blood and some dark maroon-colored stool in his diaper and in the toilet bowl. His blood pressure was also in the 90s. Brought him to the hospital for evaluation. In the emergency department hemoglobin was 12, he had no visible blood and was not having abdominal pain or fever or vomiting. CT scan was determined to be a good diagnostic test but GFR was slightly low and patient was admitted to the hospital for hydration, serial CBCs and evaluation for CT scan and possible further intervention as tolerated. His daughter reports he has had 1 other stool since being admitted, it seems to be melanotic but not voluminous. Hospital Course Hospital Course: 85-year-old male with concern for diverticular bleed/GI bleed. Admitted for monitoring and serial hemoglobins. He has remained hemodynamically stable during admission, did well overnight. Continues to have some dark stools, but becoming more brown during admission. No BRBPR. Patient's diet was gradually advanced, tolerating full liquid diet this morning. Surgery consulted, recommended medical management due to age and co-morbidities. - Tolerating antibiotics and steroids. - Differential diagnosis includes bleeding diverticuli, proctitis, upper GI bleed. - No indication for transfusion. goal Hgb >8 - continue PPI - finish empiric course of antibiotics as ordered. Surgery's recommendations: The etiology of the patient's hemorrhage remains somewhat equivocal. Upper gastrointestinal hemorrhage such as peptic ulcer disease/gastritis remain a potential causative and/or compounding factor. However, a true lower gastrointestinal hemorrhage remains a distinct probability with undefined causation (potentially diverticular bleeding, bleeding from proctitis, and/or bleeding from possible rectosigmoid neoplasm). He remains hemodynamically stable. His hemoglobin is also stable. He has significant comorbid medical conditions and is currently DNR status. At this time, the risk of intervention (given his advanced age, dementia, and overall poor prognosis) is seemingly greater than any benefit. - Endoscopic evaluation may become necessary (more for therapeutic versus diagnostic purposes) if he continues to show persistent ongoing hemorrhage. Spoke to his daughter over the phone this morning, updated of plan. Given stability, family would like to take patient home. Will plan for close follow-up and labs the beginning of next week. medically stable for DC home, has around the clock care and assistance at home. Objective Vital signs: Temp Pulse Resp BP Pulse Ox 98.8 F 80 18 163/87 H 97 04/26/21 08:00 04/26/21 08:00 04/26/21 08:00 04/26/21 08:00 04/26/21 08:00 Narrative: - Constitutional no acute distress, chronically ill appearing - *Routine HEENT Exam Head: Present: normocephalic Eye: Present: EOMI, PERRL ENT: Present: mucous membranes moist - *Routine Neck Exam Present: supple. Absent: lymphadenopathy - *Routine Respiratory Exam Present: CTA bilaterally - *Routine Cardiovascular Exam Present: RRR - *Routine Abdominal Exam Present: soft, normoactive bowel sounds. Absent: tenderness - *Routine Extremities Exam Absent: cyanosis, clubbing, edema - *Routine Skin Exam Present: warm. Absent: rash - *Routine Neurological Exam Present: alert, oriented X2 Results Labs on day of discharge: Labs from last 24 hours 04/26/21 04/26/21 04/26/21 06:15 06:15 05:28 WBC 6.1 RBC 4.02 L Hgb 12.0 L Hct 38.0 L MCV 94.4 H MCH 29.9 MCHC 31.6 L RDW 14.5 Plt Count 204 MPV 10.7 H Neut % (Auto) 88
--- NOTE | 2021-04-26 10:40 | HMH.GSCON ---
*Admission Date: 04/25/21 *Reason for consult:: Gastrointestinal hemorrhage *History of present illness: This is an 85-year-old gentleman seen in consultation from Dr. Stroud for evaluation regarding gastrointestinal hemorrhage. Please see HPI forwarded from admission H&P below. Forwarded from admission H&P: 85-year-old male who struggles with significant dementia, homebound with care from family and caregivers, also has type 2 diabetes and chronic diarrhea. Yesterday evening his caregiver noticed an extensive amount of blood both bright red liquid blood and some dark maroon-colored stool in his diaper and in the toilet bowl. His blood pressure was also in the 90s. Brought him to the hospital for evaluation. In the emergency department hemoglobin was 12, he had no visible blood and was not having abdominal pain or fever or vomiting. CT scan was determined to be a good diagnostic test but GFR was slightly low and patient was admitted to the hospital for hydration, serial CBCs and evaluation for CT scan and possible further intervention as tolerated. His daughter reports he has had 1 other stool since being admitted, it seems to be melanotic but not voluminous. Review of Systems - Constitutional Denies chills - *Cardiovascular Denies chest pain - *Respiratory Denies cough - *Gastrointestinal Reports bright, red blood in stools, Reports black, tarry stools, Denies abdominal pain, Denies heartburn, Denies vomiting blood - *Neurologic Denies seizure-like activity [facility] History Medical History: Reports:: Dementia, Diabetes Mellitus Type 2, Hyperlipidemia Denies:: Cancer, Diabetes Mellitus Type 1, MRSA *Have you ever received a pneumonia vaccine?: Yes *Have you received a flu vaccine this season?: Yes Other Medical History: Reports: Arthritis, Cataracts, Other Other Surgeries: Yes: No Previous Surgery Amputation: No - *Social History Smoking Status: Former smoker Alcohol Intake: never Substance Use Type: denies use *Occupational Status:: retired Housing: house Household Members: spouse *Travel in the last 8 weeks: None Family Hx:: No significant family history Meds Home Medications Medication Instructions Recorded Confirmed Type atorvastatin 10 mg tablet 10 mg PO HS 05/03/20 04/25/21 History donepezil 10 mg tablet 10 mg PO DAILY 05/03/20 04/25/21 History escitalopram oxalate 5 mg tablet 5 mg PO DAILY 05/03/20 04/25/21 History memantine 5 mg tablet 5 mg PO HS 05/03/20 04/25/21 History omeprazole magnesium 20 mg 20 mg PO DAILY 05/03/20 04/25/21 History tablet,delayed release zinc 50 mg tablet 50 mg PO DAILY 05/03/20 04/25/21 History Aspirin 81 mg PO DAILY 06/05/20 04/25/21 History ascorbic acid (vitamin C) 1,000 mg 1 g PO DAILY 08/02/20 04/25/21 History tablet cyanocobalamin (vitamin B-12) 1,000 mcg IM MONTHLY ml 08/02/20 04/25/21 History 1,000 mcg/mL injection solution furosemide 20 mg tablet 20 mg PO DAILY PRN 08/02/20 04/25/21 History melatonin 5 mg capsule 5 mg PO DAILY cap 08/02/20 04/25/21 History Tamsulosin HCl [Flomax 0.4mg 0.4 mg PO HS 10/06/20 04/25/21 History capsule] sitagliptin 100 mg tablet 100 mg PO DAILY 02/28/21 04/25/21 History Allergies Allergy/AdvReac Type Severity Reaction Status Date / Time No Known Allergies Allergy Verified 02/28/21 14:13 Exam Vital signs and Labs for Last 24 Hours: Temp Pulse Resp BP Pulse Ox 98.8 F 80 18 163/87 H 97 04/26/21 08:00 04/26/21 08:00 04/26/21 08:00 04/26/21 08:00 04/26/21 08:00 Laboratory Results - last 24 hr 04/25/21 16:20: POC Glucose 222 H 04/25/21 20:01: POC Glucose 162 H 04/26/21 05:28: POC Glucose 224 H 04/26/21 06:15: WBC 6.1, RBC 4.02 L, Hgb 12.0 L, Hct 38.0 L, MCV 94.4 H, MCH 29.9, M
--- NOTE | 2021-04-26 10:55 | PC.NURSE ---
pt needs home hospital bed secondary to needing assistance with mobility, transfer, and generalized weakness. Hospital be needs side rails for pt safety.
--- NOTE | 2021-04-26 11:02 | HMH.PTEV ---
Physical Therapy Evaluation Rehab PT IP Evaluation Start: 04/26/21 10:58 Freq: ONCE Status: Active Protocol: Document 04/26/21 10:59 KALANIROMARIO (Rec: 04/26/21 11:02 JENNIFER [id number]) Subjective/History History History 85 yowm adm to [facility] with lower GIB. He has hx of dementia and has 24 hr assist at home, no steps to enter the home, walks with RW. Subjective Subjective Pt reports no c/o this am. Rehab PT IP Eval Objective Appearance Patient Behavior Appropriate Patient Orientation Person Difficulty following instructions none Speech Pattern Clear Ambulation Patient Able to Ambulate Yes Ambulation Observation IP General Gait Pattern Observation Wide Based Gait Ambulation Distance (feet) 50 Ambulation Assistive Device Rolling Walker Ambulation Ability Supervision/Stand by Balance Ability to Arise Able, uses arms to help Sitting Balance Steady, safe Standing Balance Steady, wide stance Dynamic Sitting Balance Ability Good Dynamic Standing Balance Ability Fair Transfers Bed Transfer Ability Supervision/Stand by Chair Transfer Ability Supervision/Stand by Sit to Stand Bed Transfer Ability Supervision/Stand by Sit to Stand Chair Transfer Ability Supervision/Stand by ROM All Extremities PT ROM Status WFL MMT All Extremities PT MMT WFL Rehab PT IP prob,goals,plan Problems Date of Evaluation: 04/26/21 Discharge Plan PT Discharge Plan Pt appears to be at baseline for all mobility at this time and is appropriate to return home with 24 hr assist once medically stable. Recommend Hospital bed for safety and increased independence with ADLs at home. G -code Required No Eval Complexity Eval Charge Codes 57440 - Moderate Complexity PHYSICIAN CERTIFICATION: I certify the specified therapy services for Sunny Rapp are required, authorized, and reviewed every 30 days.
[2021-04-26 13:18] LABS: POC Glucose,Bedside 369 (70-110)
--- NOTE | 2021-04-29 09:41 | SW/DCPLANNER ---
PATIENT WAS SET UP WITH [facility].. I SPOKE WITH DAUGHTER THIS MORNING AND CONFIRMED HE WILL BE SEEN TODAY AND PATIENT ALSO HAS AN ORDER FOR LABS TO BE DRAWN TODAY.. PATIENT DISCHARGED HOME ON THURSDAY WITH FAMILY TO PROVIDE AROUND THE CLOCK CARE FOR THIS PATIENT...
== END 2021-04-26 15:36 | disposition home health service (06) ==
LOC: ER 01:33 → ICU 04:14
PROVIDERS: Admitting Provider Internal Medicine Adolescent Medicine; Emergency Provider Emergency Medicine; PCP Internal Medicine Adolescent Medicine; Visit Provider Internal Medicine Adolescent Medicine
DX: K92.2 Gastrointestinal hemorrhage, unspecified (principal); Z20.822 Contact with and (suspected) exposure to COVID-19; K57.32 Diverticulitis of large intestine without perforation or abscess without bleeding; E11.9 Type 2 diabetes mellitus without complications; Z79.84 Long term (current) use of oral hypoglycemic drugs; Z79.899 Other long term (current) drug therapy
CPT/HCPCS: G0378; 36415; 74177; 80048; 80053; 80076; 82150; 82272; 82962; 83690; 84145; 84484; 85007; 85025; 85651; 86140; 96365; 96366; 96375; 97162; 99284; C9803; G0328; J1956; J2405; Q9967; U0003; U0005

== ENCOUNTER → 2021-04-29 16:24 | Outpatient (CLI) | payer MEDICARE, SELFPAY ==
[2021-04-29 16:43] LABS: Basophils % 0.2 % (0.1-2.0); Eosinophils % 0.6 % (0.1-12.0); Hematocrit 33.5 % (42.0-52.0); Hemoglobin 10.7 g/dL (14.1-18.0); Lymphocytes # 0.8 K/mm3 (0.7-4.5); Lymphocytes % 11.2 % (10-50); Mean Corpuscular Hemoglobin 30.5 pg (27.0-31.2); Mean Corpuscular Volume 95.1 fl (80-94); Mean Platelet Volume 8.3 fl (7.4-10.4); Monocytes # 0.5 K/mm3 (0.1-1.0); Monocytes % 6.7 % (1.7-9.3); Neutrophils # 6.2 K/mm3 (1.8-7.8); Neutrophils % 81.4 % (37.0-80.0); Platelet Count 211 K/mm3 (142-424); Red Blood Count 3.52 M/mm3 (4.60-6.20); Red Cell Distribution Width 14.6 % (11.5-17.5); White Blood Count 7.6 K/mm3 (4.8-10.8)
[2021-04-29 17:32] LABS: Blood Urea Nitrogen 28 mg/dl (9-20); Calcium 7.5 mg/dl (8.4-10.2); Carbon Dioxide 29 mmol/L (22.0-30.0); Chloride 96 mmol/L (98-107); Estimated Glomerular Filt Rate 48 ml/min (>60); GFR (African American) 58 ML/MIN (>60); Glucose 292 mg/dl (74-100); Sodium 133 mmol/L (136-145)
== END ==
PROVIDERS: Visit Provider Internal Medicine Adolescent Medicine
DX: D64.9 Anemia, unspecified (principal)
CPT/HCPCS: 80048; 85025

== ENCOUNTER → 2021-12-12 16:33 | Outpatient (CLI) | payer OTHER, SELFPAY ==
[2021-12-12 17:53] LABS: Microscopic, Urine URINE MICROSCOPIC (MICROSCOPIC)
[2021-12-12 20:20] LABS: Appearance,Urine CLEAR (Clear); Bilirubin,Urine Negative (Negative); Blood, Urine Negative (Negative); Color,Urine YELLOW (Yellow); Glucose,Urine (UA) 3+ (Negative); Ketones,Urine Negative (Negative); Leukocyte Esterase,Urine TRACE (Negative); Nitrate,Urine Negative (Negative); PH,Urine 5.5 (5.0-8.5); Protein,Urine TRACE (Negative); Urobilinogen,Urine 0.2 EU/dl (0.2)
[2021-12-12 22:01] LABS: Bacteria,Urine 1+ /lpf; RBC,Urine Occasional #/hpf (0-3); WBC,Urine 20-50 #/hpf (0-3); Yeast,Urine 1+ /lpf
== END ==
PROVIDERS: PCP Internal Medicine Adolescent Medicine; Visit Provider Internal Medicine Adolescent Medicine
DX: N39.0 Urinary tract infection, site not specified (principal); B96.1 Klebsiella pneumoniae [K. pneumoniae] as the cause of diseases classified elsewhere
CPT/HCPCS: 81001; 87086; 87088; 87186

== ENCOUNTER → 2022-05-23 11:34 | Outpatient (CLI) | payer OTHER, SELFPAY ==
[2022-05-23 12:27] LABS: Basophils % 0.4 % (0.1-2.0); Eosinophils # 0.1 K/mm3 (0.0-0.4); Eosinophils % 0.8 % (0.1-12.0); Hematocrit 39.2 % (42.0-52.0); Hemoglobin 12.9 g/dL (14.1-18.0); Lymphocytes # 1.1 K/mm3 (0.7-4.5); Lymphocytes % 13.6 % (10-50); Mean Corpuscular HGB Conc 32.9 g/dL (31.8-35.4); Mean Corpuscular Hemoglobin 29.5 pg (27.0-31.2); Mean Corpuscular Volume 89.5 fl (80-94); Monocytes # 0.6 K/mm3 (0.1-1.0); Monocytes % 7.2 % (1.7-9.3); Neutrophils # 6.3 K/mm3 (1.8-7.8); Platelet Count 271 K/mm3 (142-424); Red Blood Count 4.38 M/mm3 (4.60-6.20); Red Cell Distribution Width 14.8 % (11.5-17.5); White Blood Count 8.1 K/mm3 (4.8-10.8)
[2022-05-23 12:29] LABS: Alanine Aminotransferase 13 U/L (12-78); Albumin Level 3.2 g/dl (3.5-5.0); Albumin/Globulin Ratio 1.4 (1.1-1.8); Alkaline Phosphatase 127 U/L (38-126); Anion Gap 7.9 mEq/L (5-15); Aspartate Amino Transferase 19 U/L (17-59); Bilirubin,Total 0.9 mg/dl (0.2-1.3); Blood Urea Nitrogen 29 mg/dl (9-20); Calcium 8.1 mg/dl (8.4-10.2); Carbon Dioxide 28 mmol/L (22.0-30.0); Chloride 102 mmol/L (98-107); Estimated Glomerular Filt Rate 48 ml/min (>60); GFR (African American) 58 ML/MIN (>60); Globulin 2.3 g/dL (1.3-3.2); Glucose 198 mg/dl (74-100); Potassium 4.9 mmoL/L (3.5-5.1); Sodium 133 mmol/L (136-145); Total Protein,Serum 5.5 g/dl (6.3-8.2)
[2022-05-23 17:31] LABS: Hemoglobin A1C 10.3 % (4.0-6.0)
== END ==
PROVIDERS: PCP Internal Medicine Adolescent Medicine; Visit Provider Internal Medicine Adolescent Medicine
DX: G31.1 Senile degeneration of brain, not elsewhere classified (principal)
CPT/HCPCS: 80053; 83036; 85025

== ENCOUNTER → 2022-05-29 13:13 | Outpatient (CLI) | payer OTHER, SELFPAY ==
[2022-05-29 13:20] LABS: Microscopic, Urine URINE MICROSCOPIC (MICROSCOPIC)
[2022-05-29 13:25] LABS: Appearance,Urine CLEAR (Clear); Bilirubin,Urine Negative (Negative); Blood, Urine Negative (Negative); Color,Urine YELLOW (Yellow); Glucose,Urine (UA) Negative (Negative); Ketones,Urine Negative (Negative); Leukocyte Esterase,Urine TRACE (Negative); Nitrate,Urine Negative (Negative); PH,Urine 5.5 (5.0-8.5); Protein,Urine TRACE (Negative); Specific Gravity, Urine 1.025 (1.005-1.030); Urobilinogen,Urine 0.2 EU/dl (0.2)
[2022-05-29 13:36] LABS: Bacteria,Urine Trace /lpf; RBC,Urine Occasional #/hpf (0-3); Squamous Epithelial Cell,Urine Occasional #/hpf (0-5); WBC,Urine Occasional #/hpf (0-3)
== END ==
PROVIDERS: PCP Internal Medicine Adolescent Medicine; Visit Provider Internal Medicine Adolescent Medicine
DX: G31.1 Senile degeneration of brain, not elsewhere classified (principal)
CPT/HCPCS: 81001

== ENCOUNTER → 2022-12-18 15:05 | Outpatient (CLI) | payer MEDICARE, SELFPAY ==
[2022-12-18 16:57] LABS: Basophils % 0.3 % (0.1-2.0); Eosinophils # 0.2 K/mm3 (0.0-0.4); Eosinophils % 2.3 % (0.1-12.0); Hematocrit 42.4 % (42.0-52.0); Hemoglobin 13.6 g/dL (14.1-18.0); Lymphocytes # 1.8 K/mm3 (0.7-4.5); Lymphocytes % 25.8 % (10-50); Mean Corpuscular Hemoglobin 30.3 pg (27.0-31.2); Mean Corpuscular Volume 94.5 fl (80-94); Mean Platelet Volume 8.8 fl (7.4-10.4); Monocytes # 0.5 K/mm3 (0.1-1.0); Monocytes % 6.3 % (1.7-9.3); Neutrophils # 4.6 K/mm3 (1.8-7.8); Neutrophils % 65.4 % (37.0-80.0); Platelet Count 283 K/mm3 (142-424); Red Blood Count 4.49 M/mm3 (4.60-6.20); Red Cell Distribution Width 14.1 % (11.5-17.5); White Blood Count 7.1 K/mm3 (4.8-10.8)
[2022-12-18 17:06] LABS: Hemoglobin A1C 8.3 % (4.0-6.0)
[2022-12-18 17:59] LABS: Chloride 106 mmol/L (98-107); Potassium 5.1 mmoL/L (3.5-5.1); Sodium 141 mmol/L (136-145)
[2022-12-18 18:01] LABS: Blood Urea Nitrogen 31 mg/dl (9-20); Estimated Glomerular Filt Rate 38 ml/min (>60); GFR (African American) 46 ML/MIN (>60)
[2022-12-18 18:02] LABS: Alanine Aminotransferase 16 U/L (12-78); Albumin/Globulin Ratio 1.2 (1.1-1.8); Alkaline Phosphatase 130 U/L (38-126); Anion Gap 13.1 mEq/L (5-15); Aspartate Amino Transferase 19 U/L (17-59); Bilirubin,Total 0.5 mg/dl (0.2-1.3); Calcium 8.7 mg/dl (8.4-10.2); Carbon Dioxide 27 mmol/L (22.0-30.0); Chol/HDL Ratio 3.4 (1-3.5); Cholesterol 155 mg/dl (140-200); Globulin 2.6 g/dL (1.3-3.2); Glucose 305 mg/dl (74-100); HDL Cholesterol 45 mg/dl (40-60); Total Protein,Serum 5.6 g/dl (6.3-8.2); Triglycerides 109 mg/dl (30-150); VLDL Cholesterol 22 mg/dL (0-40)
[2022-12-18 18:13] LABS: Direct LDL Cholesterol 88.67 mg/dL (100-129)
[2022-12-18 18:23] LABS: Triiodothryronine (T3) Uptake 44 % (23.5-40.5)
[2022-12-18 18:24] LABS: T4 (Thyroxine) 6.9 ug/dl (5.53-11.0)
[2022-12-18 18:38] LABS: Thyroid Stimulating Hormone 1.75 uIU/mL (0.465-4.68)
[2022-12-18 22:02] LABS: Vitamin B12 991 pg/mL (239-931)
== END ==
PROVIDERS: PCP Internal Medicine Adolescent Medicine; Visit Provider Internal Medicine Adolescent Medicine
DX: E11.39 Type 2 diabetes mellitus with other diabetic ophthalmic complication (principal); M15.9 Polyosteoarthritis, unspecified; F03.90 Unspecified dementia, unspecified severity, without behavioral disturbance, psychotic disturbance, mood disturbance, and anxiety; Z79.84 Long term (current) use of oral hypoglycemic drugs; E66.9 Obesity, unspecified; Z68.30 Body mass index [BMI] 30.0-30.9, adult
CPT/HCPCS: 36415; 80053; 80061; 82306; 82607; 83036; 84436; 84443; 84479; 85025

== ENCOUNTER 2023-01-01 21:37 | Emergency (ER) | payer MEDICARE, SELFPAY ==
[2023-01-01 21:37] VITALS: BP 145/65; PULSE 85; RESP 19; TEMP 36.7; O2SAT 96; BMI 27.3
--- NOTE | 2023-01-01 21:37 | CT_ITS ---
PROCEDURE INFORMATION: Exam: CT Head Without Contrast Exam date and time: 01/01/2023 9:41 PM Age: 87 years old Clinical indication: Stroke-like symptoms; Altered mental status/memory loss TECHNIQUE: Imaging protocol: Computed tomography of the head without contrast. Radiation optimization: All CT scans at this facility use at least one of these dose optimization techniques: automated exposure control; mA and/or kV adjustment per patient size (includes targeted exams where dose is matched to clinical indication); or iterative reconstruction. Other technique: STROKE PROTOCOL was implemented. REPORTING DATA: Count of CT and Cardiac NM exams in prior 12 months: This patient has received 0 known CTs and 0 known cardiac nuclear medicine studies in the 12 months prior to the current study. 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 Encephalomalacia. Periventricular and subcortical small vessel ischemic changes. Age-appropriate atrophy associated. No acute hemorrhage, mass effect, midline shift, or extra-axial fluid collection. Cerebral ventricles: No ventriculomegaly. Paranasal sinuses: Visualized sinuses are unremarkable. No fluid levels. Mastoid air cells: Visualized mastoid air cells are well aerated. Bones/joints: Unremarkable. No acute fracture. Soft tissues: Unremarkable. IMPRESSION: 1. 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 Encephalomalacia. 2. No acute infarct identified. ASSESSMENT: ASPECTS ([facility] Stroke Program Early CT Score) is 10.
--- NOTE | 2023-01-01 21:46 | CT_ITS ---
PROCEDURE INFORMATION: Exam: CTA Head With Contrast, Arteriography Exam date and time: 01/01/2023 9:46 PM Age: 87 years old Clinical indication: Stroke-like symptoms; Altered mental status/memory loss TECHNIQUE: Imaging protocol: Computed tomographic angiography of the head with contrast. Exam focused on the arteries. 3D rendering (Not supervised by radiologist): MIP and/or 3D reconstructed images were created by the technologist. Radiation optimization: All CT scans at this facility use at least one of these dose optimization techniques: automated exposure control; mA and/or kV adjustment per patient size (includes targeted exams where dose is matched to clinical indication); or iterative reconstruction. Contrast material: ISOVUE; Contrast volume: 100 ml; Contrast route: INTRAVENOUS (IV); REPORTING DATA: Count of CT and Cardiac NM exams in prior 12 months: This patient has received 0 known CTs and 0 known cardiac nuclear medicine studies in the 12 months prior to the current study. COMPARISON: CT HEAD/BRAIN WO CON 01/01/2023 9:41 PM FINDINGS: ANTERIOR CIRCULATION: Right internal carotid artery: Intracranial segment is patent with multifocal significant stenosis. No aneurysm. Right middle cerebral artery: No occlusion or significant stenosis. No aneurysm. Right anterior cerebral artery: No occlusion or significant stenosis. No aneurysm. Left internal carotid artery: Intracranial segment is patent with multifocal significant stenosis. No aneurysm. Left middle cerebral artery: No occlusion or significant stenosis. No aneurysm. Left anterior cerebral artery: No occlusion or significant stenosis. No aneurysm. POSTERIOR CIRCULATION: Right vertebral artery: No occlusion or significant stenosis. No aneurysm. Left vertebral artery: No occlusion or significant stenosis. No aneurysm. Basilar artery: No occlusion or significant stenosis. No aneurysm. Right posterior cerebral artery: No occlusion or significant stenosis. No aneurysm. Left posterior cerebral artery: No occlusion or significant stenosis. No aneurysm. Brain: No definite mass, mass effect, or midline shift. Cerebral ventricles: No ventriculomegaly. Bones/joints: Unremarkable. No acute fracture. Soft tissues: Unremarkable. IMPRESSION: No large vessel stenosis or occlusion.
--- NOTE | 2023-01-01 21:46 | XR_ITS ---
PROCEDURE INFORMATION: Exam: XR Chest Exam date and time: 01/01/2023 10:16 PM Age: 87 years old Clinical indication: Other: AMS; Additional info: Stroke, AMS TECHNIQUE: Imaging protocol: Radiologic exam of the chest. Views: 1 view. COMPARISON: CR XR CHEST PORTABLE 10/06/2020 7:57 PM FINDINGS: Lungs: Unremarkable. No consolidation. Pleural spaces: Unremarkable. No pleural effusion. No pneumothorax. Heart/Mediastinum: Unremarkable. No cardiomegaly. Bones/joints: Unremarkable. IMPRESSION: No acute findings.
--- NOTE | 2023-01-01 21:46 | CT_ITS ---
PROCEDURE INFORMATION: Exam: CTA Neck With Contrast Exam date and time: 01/01/2023 9:46 PM Age: 87 years old Clinical indication: Stroke-like symptoms; Altered mental status/memory loss TECHNIQUE: Imaging protocol: Computed tomographic angiography of the neck with contrast. 3D rendering (Not supervised by radiologist): MIP and/or 3D reconstructed images were created by the technologist. Radiation optimization: All CT scans at this facility use at least one of these dose optimization techniques: automated exposure control; mA and/or kV adjustment per patient size (includes targeted exams where dose is matched to clinical indication); or iterative reconstruction. Contrast material: ISOVUE; Contrast volume: 100 ml; Contrast route: INTRAVENOUS (IV); REPORTING DATA: Count of CT and Cardiac NM exams in prior 12 months: This patient has received 0 known CTs and 0 known cardiac nuclear medicine studies in the 12 months prior to the current study. COMPARISON: CT HEAD/BRAIN WO CON 01/01/2023 9:41 PM FINDINGS: Right common carotid artery: No stenosis. No dissection or occlusion. Right internal carotid artery: Mild right ICA stenosis at the bulb, heavily calcified. Less than 50% by NASCET criteria. Right external carotid artery: No occlusion or stenosis of the origin. Left common carotid artery: No stenosis. No dissection or occlusion. Left internal carotid artery: Mild left ICA stenosis at the bulb, heavily calcified. Less than 50% by NASCET criteria. Left external carotid artery: No occlusion or stenosis of the origin. Right vertebral artery: No stenosis. No dissection or occlusion. Left vertebral artery: No stenosis. No dissection or occlusion. Soft tissues: Normal. No significant soft tissue swelling. Bones/joints: No acute fracture. IMPRESSION: 1. Mild right ICA stenosis at the bulb, heavily calcified. Less than 50% by NASCET criteria. 2. Mild left ICA stenosis at the bulb, heavily calcified. Less than 50% by NASCET criteria. REFERENCES: NASCET CRITERIA. The degree of stenosis in the cervical segment of the internal carotid artery is based on NASCET criteria. Normal is no stenosis. Mild is less than 50% stenosis. Moderate is 50-69% stenosis. Severe is 70% to 99% stenosis. Total occlusion is no detectable patent lumen.
[2023-01-01 21:49] LABS: POC Glucose,Bedside 180 (70-110)
--- NOTE | 2023-01-01 22:07 | [facility].EDGENADL ---
Discharge Plan Disposition Patient Disposition: Home, Self-Care Condition: Good Prescriptions Prescriptions: New aspirin 81 mg capsule 81 mg PO DAILY Qty: 30 0RF atorvastatin 40 mg tablet 40 mg PO DAILY Qty: 30 0RF No Action trazodone 50 mg tablet 50 mg PO HS hydrocodone-acetaminophen 5-325 mg tablet 1 tab PO BID tamsulosin 0.4 mg capsule 0.4 mg PO HS pantoprazole 40 mg tablet,delayed release (DR/EC) 40 mg PO DAILY metformin 1,000 mg tablet 1,000 mg PO DAILY omeprazole 20 mg capsule,delayed release(DR/EC) 20 mg PO DAILY memantine 5 mg tablet 5 mg PO DAILY escitalopram oxalate 5 mg tablet 5 mg PO DAILY Januvia 100 mg tablet 100 mg PO DAILY Referrals Follow up/Referrals: Ross Amaral MD [Staff Physician] - See instructions Jaiden Stroud MD [Primary Care Provider] - See instructions Activity Restrictions/Add. Instructions Additional Instructions/Restrictions: Please follow-up with your primary care provider for consideration of initiation of aspirin and statin for stroke prophylaxis. Consider following up with Dr. Amaral for carotid stenosis.. Please return to the emergency department if you develop any new or worsening symptoms or become concerned for your health. Clinical Impressions Clinical Impression: Brain TIA, Carotid artery stenosis Discharge ED Provider: Yani Flor General Adult HPI <Yani Flor DO - Last Filed: 01/01/23 23:16> General Chief complaint: Neuro Symptoms/Deficit Stated complaint: Stroke Time Seen by Provider: 01/01/23 21:46 Mode of Arrival: EMS Source of Information: EMS Limitations: Altered Mental Status Description of Symptoms (Recalled from ER Triage Doc. by RN): 87 M presents with possible stroke. Symptoms began approximately 2044 per family who report patient walked to the restroom and had sudden onset of right facial droop and weakness. EMS reported unequal pupils, right sided deficits. Patient has dementia at baseline. Attending at bedside when arrived to ER. History of Present Illness HPI narrative: This patient is a 87-year-old male with a history of dementia, diabetes, right foot ulcer, and diabetic foot presenting to the emergency department for evaluation with concern for stroke. Patient was also recently on hospice, but he was discharged from hospice as he had been doing much better according to family. He lives at home with his family. Per family and EMS, the patient was sitting on his bedside commode when he suddenly became unresponsive, had left gaze preference, right facial droop, and right-sided weakness. Given this, family called EMS who brought him in. They noted that he continued to have gaze preference to the left, asymmetric pupils, right-sided facial droop, and altered mental status throughout transfer. Upon arrival, patient does not contribute much to history given acuity of condition and altered mental status. According to family, patient has no history of prior stroke. They deny any use of anticoagulation. Patient was well and at his baseline prior to this. Related Data Home Medications Medication Instructions Recorded Confirmed escitalopram oxalate 5 mg tablet 5 mg PO DAILY Psych 01/01/23 01/01/23 hydrocodone 5 mg-acetaminophen 325 1 tab PO BID Chronic pain 01/01/23 01/01/23 mg tablet memantine 5 mg tablet 5 mg PO DAILY Memory 01/01/23 01/01/23 metformin 1,000 mg tablet 1,000 mg PO DAILY Diabetes 01/01/23 01/01/23 omeprazole 20 mg capsule,delayed 20 mg PO DAILY Acid Reflux 01/01/23 01/01/23 release pantoprazole 40 mg tablet,delayed 40 mg PO DAILY Acid Reflux 01/01/23 01/01/23 release sitagliptin phosphate 100 mg 100 mg PO DAILY Diabetes 01/01/23 01/01/23 tablet (Januvia) tamsulosin 0.4 mg capsule 0.4 mg PO HS BPH 01/01/23 01/01/23 trazodone 50 mg tablet 50 mg PO HS Insomnia 01/01/23 01/01/23 Previous Rx's Medication Instructions Recorded aspirin 81
[2023-01-01 22:13] LABS: Basophils % 0.5 % (0.1-2.0); Eosinophils # 0.2 K/mm3 (0.0-0.4); Eosinophils % 2.7 % (0.1-12.0); Hematocrit 37.6 % (42.0-52.0); Hemoglobin 11.7 g/dL (14.1-18.0); Lymphocytes # 2.3 K/mm3 (0.7-4.5); Lymphocytes % 30.8 % (10-50); Mean Corpuscular Hemoglobin 29.4 pg (27.0-31.2); Mean Corpuscular Volume 94.6 fl (80-94); Mean Platelet Volume 8.1 fl (7.4-10.4); Monocytes # 0.5 K/mm3 (0.1-1.0); Monocytes % 6.8 % (1.7-9.3); Neutrophils # 4.4 K/mm3 (1.8-7.8); Neutrophils % 59.1 % (37.0-80.0); Platelet Count 236 K/mm3 (142-424); Red Blood Count 3.97 M/mm3 (4.60-6.20); Red Cell Distribution Width 14.1 % (11.5-17.5); White Blood Count 7.5 K/mm3 (4.8-10.8)
[2023-01-01 22:14] LABS: Chloride 102 mmol/L (98-107); Potassium 4.8 mmoL/L (3.5-5.1); Sodium 134 mmol/L (136-145)
[2023-01-01 22:16] LABS: Alanine Aminotransferase 20 U/L (12-78); Aspartate Amino Transferase 21 U/L (17-59); Blood Urea Nitrogen 32 mg/dl (9-20); Creatinine Clearance Estimated 34 mL/min (50-200); Estimated Glomerular Filt Rate 36 ml/min (>60); GFR (African American) 44 ML/MIN (>60)
[2023-01-01 22:17] LABS: Albumin Level 2.6 g/dl (3.5-5.0); Albumin/Globulin Ratio 1.3 (1.1-1.8); Alkaline Phosphatase 107 U/L (38-126); Anion Gap 13.8 mEq/L (5-15); Bilirubin,Total 0.5 mg/dl (0.2-1.3); Calcium 7.9 mg/dl (8.4-10.2); Carbon Dioxide 23 mmol/L (22.0-30.0); Glucose 176 mg/dl (74-100); Total Protein,Serum 4.6 g/dl (6.3-8.2)
[2023-01-01 22:20] LABS: Activated Partial Thrombo Time 27.6 seconds (22.8-30.6); Prothrombin Time 11.8 seconds (10.1-12.5)
--- NOTE | 2023-01-01 22:28 | ECG_ITS ---
APPROVED REPORT Exam: Resting ECG HR:86 bpm ECG Measurements Heart Rate 86 AXES QRSd 121 QRS -63 QT 397 T 45 QTc 441 Conclusion UNCERTAIN REGULAR RHYTHM RIGHT BUNDLE BRANCH BLOCK [120+ ms QRS DURATION, UPRIGHT V1, 40+ ms S IN I/aVL/V4/V5/V6] LEFT ANTERIOR FASCICULAR BLOCK [QRS AXIS <= -45, QR IN I, RS IN II] ABNORMAL ECG UNCONFIRMED REPORT Electronically signed by : Jaiden Stroud MD 01/02/2023 15:54:53
[2023-01-01 22:29] LABS: Troponin I < 0.01 ng/ml (0.00-0.034)
[2023-01-01 22:30] VITALS: BP 139/66; PULSE 87; RESP 16; O2SAT 97
[2023-01-01 23:02] VITALS: BP 147/63; PULSE 87; RESP 14; O2SAT 98
[2023-01-01 23:30] VITALS: BP 123/52; PULSE 89; RESP 14; O2SAT 97
--- NOTE | 2023-01-02 00:34 | PC.NURSE ---
Patient is up and sitting on the side of the bed. Tolerating movement well and family report he's at his baseline
[2023-01-02 00:36] VITALS: BP 123/55; PULSE 90; RESP 17; TEMP 36.8; O2SAT 96
== END 2023-01-02 00:47 | disposition home or self-care (01) ==
PROVIDERS: Emergency Provider Emergency Medicine; PCP Internal Medicine Adolescent Medicine
DX: G45.9 Transient cerebral ischemic attack, unspecified (principal); I44.4 Left anterior fascicular block; F03.90 Unspecified dementia, unspecified severity, without behavioral disturbance, psychotic disturbance, mood disturbance, and anxiety
CPT/HCPCS: 70450; 70496; 70498; 71045; 80053; 82962; 84484; 85025; 85610; 85730; 93005; 96360; 99291; Q9967

== ENCOUNTER 2023-08-01 05:33 | Emergency (ER) | payer MEDICARE, SELFPAY ==
[2023-08-01] VITALS (7 sets, daily range): BP systolic 91–183; BP diastolic 40–87; PULSE 88–99; RESP 14–18; TEMP 36.4–36.7; O2SAT 95–98; BMI 34.4
--- NOTE | 2023-08-01 | CT_ITS ---
PROCEDURE INFORMATION: Exam: CTA Head With Contrast, Arteriography Exam date and time: 08/01/2023 7:20 AM Age: 87 years old Clinical indication: Injury or trauma; Fall; Blunt trauma; Head; Additional info: Head was hung in the rail of the bed TECHNIQUE: Imaging protocol: Computed tomographic angiography of the head with contrast. Exam focused on the arteries. 3D rendering (Not supervised by radiologist): MIP and/or 3D reconstructed images were created by the technologist. Radiation optimization: All CT scans at this facility use at least one of these dose optimization techniques: automated exposure control; mA and/or kV adjustment per patient size (includes targeted exams where dose is matched to clinical indication); or iterative reconstruction. Contrast material: ISOVUE; Contrast volume: 100 ml; Contrast route: INTRAVENOUS (IV); COMPARISON: CT ANGIO HEAD 01/01/2023 9:46 PM FINDINGS: ANTERIOR CIRCULATION: Right internal carotid artery: Calcified atherosclerosis involving the cavernous portion of the right distal ICA with less than 50% luminal narrowing. Right middle cerebral artery: No occlusion or significant stenosis. No aneurysm. Right anterior cerebral artery: No occlusion or significant stenosis. No aneurysm. Left internal carotid artery: Calcified atherosclerosis involving the cavernous portion of the left distal ICA with less than 50% luminal narrowing. Left middle cerebral artery: No occlusion or significant stenosis. No aneurysm. Left anterior cerebral artery: No occlusion or significant stenosis. No aneurysm. POSTERIOR CIRCULATION: Right vertebral artery: No occlusion or significant stenosis. No aneurysm. Left vertebral artery: No occlusion or significant stenosis. No aneurysm. Basilar artery: No occlusion or significant stenosis. No aneurysm. Right posterior cerebral artery: No occlusion or significant stenosis. No aneurysm. Left posterior cerebral artery: No occlusion or significant stenosis. No aneurysm. Brain: No definite mass, mass effect, or midline shift. Cerebral ventricles: No ventriculomegaly. Bones/joints: Unremarkable. No acute fracture. Soft tissues: Unremarkable. IMPRESSION: No large vessel occlusion or significant stenosis.
--- NOTE | 2023-08-01 05:29 | CT_ITS ---
PROCEDURE INFORMATION: Exam: CTA Head With Contrast, Arteriography Exam date and time: 08/01/2023 7:22 AM Age: 87 years old Clinical indication: Injury or trauma; Fall; Blunt trauma; Head and neck; Additional info: Neck trauma TECHNIQUE: Imaging protocol: Computed tomographic angiography of the head with contrast. Exam focused on the arteries. 3D rendering (Not supervised by radiologist): MIP and/or 3D reconstructed images were created by the technologist. Radiation optimization: All CT scans at this facility use at least one of these dose optimization techniques: automated exposure control; mA and/or kV adjustment per patient size (includes targeted exams where dose is matched to clinical indication); or iterative reconstruction. Contrast material: ISOVUE 370; Contrast volume: 100 ml; Contrast route: INTRAVENOUS (IV); COMPARISON: CT ANGIO HEAD 01/01/2023 9:46 PM FINDINGS: Due to contrast bolus timing there is no enhancement of the cervical arteries rendering the examination nondiagnostic for the purposes of determining vessel patency. Brain: No definite mass, mass effect, or midline shift. Cerebral ventricles: No ventriculomegaly. Bones/joints: Unremarkable. No acute fracture. Soft tissues: Unremarkable. IMPRESSION: Nondiagnostic CT angiogram of the head.
--- NOTE | 2023-08-01 05:29 | CT_ITS ---
PROCEDURE INFORMATION: Exam: CT Cervical Spine Without Contrast Exam date and time: 08/01/2023 7:12 AM Age: 87 years old Clinical indication: Injury or trauma; Fall; Blunt trauma; Injury details: Pt's head was hung in the bed rail; Additional info: Fall on neck TECHNIQUE: Imaging protocol: Computed tomography of the cervical spine without contrast. Radiation optimization: All CT scans at this facility use at least one of these dose optimization techniques: automated exposure control; mA and/or kV adjustment per patient size (includes targeted exams where dose is matched to clinical indication); or iterative reconstruction. COMPARISON: CT ANGIO NECK 01/01/2023 9:46 PM FINDINGS: Bones/joints: There is no evidence for acute cervical fracture. Multilevel cervical spondylosis is noted disc osteophyte, uncovertebral spurring and facet arthropathy. Mastoid air cells: There is opacification of mastoid air cells bilaterally. Lungs: Lung apices are normal. Soft tissues: Unremarkable. IMPRESSION: No evidence for acute cervical fracture.
--- NOTE | 2023-08-01 05:29 | CT_ITS ---
PROCEDURE INFORMATION: Exam: CT Head Without Contrast Exam date and time: 08/01/2023 7:10 AM Age: 87 years old Clinical indication: Injury or trauma; Fall; Blunt trauma (contusions or hematomas); Consciousness not specified; Additional info: Fall, patients head was hung in the bed rail . TECHNIQUE: Imaging protocol: Computed tomography of the head without contrast. Radiation optimization: All CT scans at this facility use at least one of these dose optimization techniques: automated exposure control; mA and/or kV adjustment per patient size (includes targeted exams where dose is matched to clinical indication); or iterative reconstruction. COMPARISON: CT ANGIO HEAD 01/01/2023 9:46 PM FINDINGS: Brain: There is no mass effect, midline shift, acute hemorrhage, extra-axial fluid collection or acute lobar infarct. Chronic infarct is noted in the basal ganglia. Periventricular white matter hypodensity likely represents chronic microvascular ischemic change. Cerebral ventricles: No ventriculomegaly. Paranasal sinuses: Patchy mucosal thickening and opacities noted within frontal recesses, ethmoid air cells and right maxillary antra. Mastoid air cells: There is complete opacification of mastoid air cells bilaterally. Orbital cavities: Patient is post bilateral cataract surgery. Bones/joints: Unremarkable. No acute fracture. Soft tissues: Unremarkable. IMPRESSION: No acute intracranial process.
--- NOTE | 2023-08-01 05:29 | CT_ITS ---
PROCEDURE INFORMATION: Exam: CTA Neck With Contrast Exam date and time: 08/01/2023 7:22 AM Age: 87 years old Clinical indication: Injury or trauma; Fall; Blunt trauma; Head and neck; Patient HX: Pt's head was hung in the bed rail; Additional info: Neck trauma TECHNIQUE: Imaging protocol: Computed tomographic angiography of the neck with contrast. Exam focused on the cervical segments of the vasculature. 3D rendering (Not supervised by radiologist): MIP and/or 3D reconstructed images were created by the technologist. Radiation optimization: All CT scans at this facility use at least one of these dose optimization techniques: automated exposure control; mA and/or kV adjustment per patient size (includes targeted exams where dose is matched to clinical indication); or iterative reconstruction. Contrast material: ISOAVUE 370; Contrast volume: 100 ml; Contrast route: INTRAVENOUS (IV); COMPARISON: CT ANGIO NECK 01/01/2023 9:46 PM FINDINGS: Right common carotid artery: Nondiagnostic. Right internal carotid artery: Heavy calcific atheromatous plaque. Cannot assess patency. Right external carotid artery: Nondiagnostic. Left common carotid artery: Nondiagnostic. Left internal carotid artery: Heavy calcific atheromatous plaque. Cannot assess patency. Left external carotid artery: Nondiagnostic. Right vertebral artery: Nondiagnostic. Left vertebral artery: Nondiagnostic. Other arteries: Due to contrast bolus timing there is no enhancement of the cervical arteries running examination nearly nondiagnostic. Soft tissues: There is opacification of the mastoid air cells. Patchy mucosal thickening opacities noted within visualized paranasal sinuses. Bones/joints: No acute fracture. Other findings: There is headache atheromatous calcification noted at the carotid bulb extending into the internal carotid arteries. IMPRESSION: Nondiagnostic CT angiogram of the neck due to suboptimal contrast bolus timing. Heavy calcific plaque at the carotid bulbs extending into the internal carotid arteries. REFERENCES: NASCET CRITERIA. The degree of stenosis in the cervical segment of the internal carotid artery is based on NASCET criteria. Normal is no stenosis. Mild is less than 50% stenosis. Moderate is 50-69% stenosis. Severe is 70% to 99% stenosis. Total occlusion is no detectable patent lumen.
--- NOTE | 2023-08-01 06:34 | [facility].EDGENADL ---
Discharge Plan Disposition Patient Disposition: Home, Self-Care Chief Complaint: Fall Prescriptions Prescriptions: No Action pantoprazole [Protonix] 40 mg Tablet,Delayed Release (Dr/Ec) 40 mg PO DAILY metformin 1,000 mg Tablet 1,000 mg PO DAILY escitalopram oxalate 10 mg Tablet 10 mg PO DAILY aspirin 81 mg Capsule 81 mg PO DAILY atorvastatin 40 mg Tablet 40 mg PO HS omeprazole 20 mg Capsule,Delayed Release(Dr/Ec) 20 mg PO DAILY memantine 5 mg Tablet 5 mg PO HS Januvia 100 mg Tablet 100 mg PO DAILY Referrals Follow up/Referrals: Provider,Referral, [Primary Care Provider] - See instructions Clinical Impressions Clinical Impression: Injury of neck, Fall Discharge ED Provider: John Deleon General Adult HPI <Gautam Weber MD - Last Filed: 08/01/23 07:52> General Chief complaint: Fall Stated complaint: fall Time Seen by Provider: 08/01/23 05:40 Mode of Arrival: EMS Source of Information: Patient and EMS Limitations: No Limitations Description of Symptoms (Recalled from ER Triage Doc. by RN): EMS states on arrival pt had fallen from his hospital bed. The top rail was broken and the pts body was wedged between the bed and the lower bed rail. pts head was sitting on top of the rail with him unable to move due to his wedged position. pt presents with red ligature frazier to the anterior portion of the pts neck. pt denies any pain. History of Present Illness HPI narrative: 87-year-old male with history of Alzheimer's, [facility] resident, presents from nursing facility with neck injury. The rail on the bed was malfunctioning and he slid off of the bed, he was found with his neck resting against the rail and the nurse facility people were unable to get him off of it. EMS arrived and they removed him from the bed. He has a red christi across the anterior aspect of the neck. He denies any pain, difficulty breathing etc. Is only partially oriented. EMS had no issues in transport. Related Data Home Medications Medication Instructions Recorded Confirmed aspirin 81 mg capsule 81 mg PO DAILY 08/01/23 08/01/23 atorvastatin 40 mg tablet 40 mg PO HS 08/01/23 08/01/23 escitalopram oxalate 10 mg tablet 10 mg PO DAILY 08/01/23 08/01/23 memantine 5 mg tablet 5 mg PO HS 08/01/23 08/01/23 metformin 1,000 mg tablet 1,000 mg PO DAILY 08/01/23 08/01/23 omeprazole 20 mg capsule,delayed 20 mg PO DAILY 08/01/23 08/01/23 release pantoprazole 40 mg tablet,delayed 40 mg PO DAILY 08/01/23 08/01/23 release (Protonix) sitagliptin phosphate 100 mg 100 mg PO DAILY 08/01/23 08/01/23 tablet (Januvia) Allergies Allergy/AdvReac Type Severity Reaction Status Date / Time No Known Allergies Allergy Verified 07/30/23 14:55 PFSH <Gautam Weber MD - Last Filed: 08/01/23 07:52> FOR[facility]LY [facility] Disclaimer: The information contained in this section may have been updated after the patient was seen, as this information can be updated by other users. Social History Smoking Status: Never smoker alcohol intake: never substance use type: denies use current occupational status: retired Travel in the last 8 weeks: None household members: spouse housing: house caffeine: Yes <Gautam Weber MD - Last Filed: 08/01/23 07:52> ROS Obtained: Yes All systems reviewed & no additional complaints except as documented Physical Exam <Gautam Weber MD - Last Filed: 08/01/23 07:52> General General appearance: alert and in no apparent distress Head Head exam: atraumatic and normocephalic Eye Eye exam: Present normal appearance, PERRL and EOMI ENT ENT exam: Present normal oropharynx and normal external ear exam Neck Neck exam: Present other (Mild redness across the anterior mid neck, no crepitus, no tenderness) Chest Chest inspection: Present normal inspection and symmetric chest wall rise; Absent tenderness Respiratory Respiratory exam: Present normal lung sounds bilaterally; Absent respiratory distress Cardiovascular Cardiovascular exam: Present regular rate and normal rhythm Abdominal Exam Abdominal exam: Present soft; Absent distention, tenderness or guarding Extremities Exam Extremities exam: Present normal inspection; Absent edema or joint swelling Back Exam Back exam: Present normal inspection; Absent tenderness Neurological Exam Neurological exam: Present alert and oriented X3; Absent motor sensory deficit Psychiatric Psychiatric exam: Present normal affect and normal mood Skin Skin exam: Present warm, dry and normal color Lymphatic Lymphatic Findings: no adenopathy Medical Decision Making <Gautam Weber MD - Last Filed: 08/01/23 07:52> Medical Records Medical records reviewed: Yes I reviewed the patient's medical records. Sunil Inquiry Pt receiving controlled substance: No Sunil was queried for this patient: No Vital Signs: 08/01/23 05:29 08/01/23 07:58 08/01/23 08:00 Temperature 97.6 F Temperature Source Tympanic Pulse Rate 99 H 99 H Pulse Rate [Left] 93 H Respiratory Rate 14 Blood Pressure 151/76 H 148/71 H Blood Pressure [Right Arm] 183/87 H Blood Pressure Mean 118 Blood Pressure Mean [Right Arm] 119 Blood Pressure Source [Right Arm] Automatic Cuff Blood Pressure Position [Right Arm] Sitting 02 Sat by Pulse Oximetry 98 96 96 Oxygen Delivery Method Room Air 08/01/23 08:30 08/01/23 09:00 08/01/23 09:13 Temperature Temperature Source Pulse Rate 98 H 98 H 95 H Pulse Rate [Left] Respiratory Rate Blood Pressure 118/59 L 91/40 L 95/46 L Blood Pressure [Right Arm] Blood Pressure Mean Blood Pressure Mean [Right Arm] Blood Pressure Source [Right Arm] Blood Pressure Position [Right Arm] 02 Sat by Pulse Oximetry 97 96 96 Oxygen Delivery Method Room Air Room Air Room Air Lab Data Lab results reviewed: Yes I reviewed the patient's lab results. Lab Results 08/01/23 06:35: WBC 11.5 H, RBC 4.87, Hgb 14.9, Hct 47.5, MCV 97.5 H, MCH 30.6, MCHC 31.4 L, RDW 14.1, Plt Count 222, MPV 8.5, Neut % (Auto) 80.7 H, Lymph % (Auto) 11.9, Caswell % (Auto) 4.6, Eos % (Auto) 2.0, Baso % (Auto) 0.8, Neut # (Auto) 9.3 H, Lymph # (Auto) 1.4, Caswell # (Auto) 0.5, Eos # (Auto) 0.2, Baso # (Auto) 0.1, Sodium 135 L, Potassium 5.3 H, Chloride 103, Carbon Dioxide 28, Anion Gap 9.3, BUN 35 H, Creatinine 1.40 H, Estimated Creat Clear 53, Estimated GFR 48 L, Est GFR ( Amer) 58 L, Glucose 179 H, Calcium 9.3, Total Bilirubin 1.2, AST 34, ALT 25, Alkaline Phosphatase 158 H, Total Protein 6.7 D, Albumin 3.8, Globulin 2.9, Albumin/Globulin Ratio 1.3 08/01/23 06:35 08/01/23 06:35 Orders (Tests/Meds): ED MEDICATIONS Discontinued Medications Generic Name Dose Route Start Last Admin Trade Name Freq PRN Reason Stop Dose Admin Lactated Ringer's 1,000 mls @ 999 mls/hr 08/01/23 07:55 08/01/23 09:20 Lactated Ringer's 1000 Ml Bag IV 08/01/23 08:55 999 mls/hr .Q1H1M ONE Administration Iopamidol 100 ml 08/01/23 07:37 08/01/23 07:39 Iopamidol-370 (76%);100ml Bottle IV 08/01/23 07:38 100 ml ONCE ONE Administration Sodium Chloride 50 ml 08/01/23 07:37 08/01/23 07:39 0.9 % Sodium Chloride 50 Ml Vial IV 08/01/23 07:38 50 ml ONCE ONE Administration Sodium Chloride 10 ml 08/01/23 07:37 08/01/23 07:39 Sodium Chloride 0.9% 10ml Syr (Rad Only) IV 08/01/23 07:38 10 ml ONCE ONE Administration ORDERS Category Date Time Status CT angio head Stat Cat Scan 08/01/[address] angio head Stat Cat Scan 08/01/23 05:[address] angio neck Stat Cat Scan 08/01/23 05:[address] angio neck Stat Cat Scan 08/01/23 08:[address] cervical spine wo con Stat Cat Scan 08/01/23 05:[address] head/brain wo con Stat Cat Scan 08/01/23 05:29 Completed CBC w/Auto Diff [Complete Blood Count Auto Diff] Stat Lab 08/01/23 06:35 Completed CMP [Comprehensive Metabolic Panel] Stat Lab 08/01/23 06:35 Completed Medical Decision Narrative: 87-year-old male with history of Alzheimer's presents with mild neck trauma after slipping off the bed and landing with his neck on the bed rail. History was obtained interactive discussion with EMS, nursing facility. On arrival, patient is overall, hearing stable, generally well-appearing alert and interactive, moving all extremities spontaneously. Full physical exam performed and significant for erythema over the anterior neck. Differential includes but is not limited to facture, dislocation, vascular trauma, intracranial trauma. Workup initiated including CT head, CT C-spine, CTA head neck CBC CMP. At this time care handed off to oncoming physician. <John Deleon MD - Last Filed: 08/01/23 10:09> Vital Signs: 08/01/23 05:29 08/01/23 07:58 08/01/23 08:00 Temperature 97.6 F Temperature Source Tympanic Pulse Rate 99 H 99 H Pulse Rate [Left] 93 H Respiratory Rate 14 Blood Pressure 151/76 H 148/71 H Blood Pressure [Right Arm] 183/87 H Blood Pressure Mean 118 Blood Pressure Mean [Right Arm] 119 Blood Pressure Source [Right Arm] Automatic Cuff Blood Pressure Position [Right Arm] Sitting 02 Sat by Pulse Oximetry 98 96 96 Oxygen Delivery Method Room Air 08/01/23 08:30 08/01/23 09:00 08/01/23 09:13 Temperature Temperature Source Pulse Rate 98 H 98 H 95 H Pulse Rate [Left] Respiratory Rate Blood Pressure 118/59 L 91/40 L 95/46 L Blood Pressure [Right Arm] Blood Pressure Mean Blood Pressure Mean [Right Arm] Blood Pressure Source [Right Arm] Blood Pressure Position [Right Arm] 02 Sat by Pulse Oximetry 97 96 96 Oxygen Delivery Method Room Air Room Air Room Air Lab Data Lab Results 08/01/23 06:35: WBC 11.5 H, RBC 4.87, Hgb 14.9, Hct 47.5, MCV 97.5 H, MCH 30.6, MCHC 31.4 L, RDW 14.1, Plt Count 222, MPV 8.5, Neut % (Auto) 80.7 H, Lymph % (Auto) 11.9, Caswell % (Auto) 4.6, Eos % (Auto) 2.0, Baso % (Auto) 0.8, Neut # (Auto) 9.3 H, Lymph # (Auto) 1.4, Caswell # (Auto) 0.5, Eos # (Auto) 0.2, Baso # (Auto) 0.1, Sodium 135 L, Potassium 5.3 H, Chloride 103, Carbon Dioxide 28, Anion Gap 9.3, BUN 35 H, Creatinine 1.40 H, Estimated Creat Clear 53, Estimated GFR 48 L, Est GFR ( Amer) 58 L, Glucose 179 H, Calcium 9.3, Total Bilirubin 1.2, AST 34, ALT 25, Alkaline Phosphatase 158 H, Total Protein 6.7 D, Albumin 3.8, Globulin 2.9, Albumin/Globulin Ratio 1.3 Orders (Tests/Meds): ED MEDICATIONS Discontinued Medications Generic Name Dose Route Start Last Admin Trade Name Freq PRN Reason Stop Dose Admin Lactated Ringer's 1,000 mls @ 999 mls/hr 08/01/23 07:55 08/01/23 09:20 Lactated Ringer's 1000 Ml Bag IV 08/01/23 08:55 999 mls/hr .Q1H1M ONE Administration Iopamidol 100 ml 08/01/23 07:37 08/01/23 07:39 Iopamidol-370 (76%);100ml Bottle IV 08/01/23 07:38 100 ml ONCE ONE Administration Sodium Chloride 50 ml 08/01/23 07:37 08/01/23 07:39 0.9 % Sodium Chloride 50 Ml Vial IV 08/01/23 07:38 50 ml ONCE ONE Administration Sodium Chloride 10 ml 08/01/23 07:37 08/01/23 07:39 Sodium Chloride 0.9% 10ml Syr (Rad Only) IV 08/01/23 07:38 10 ml ONCE ONE Administration ORDERS Category Date Time Status CT angio head Stat Cat Scan 08/01/[address] angio head Stat Cat Scan 08/01/23 05:[address] angio neck Stat Cat Scan 08/01/23 05:[address] angio neck Stat Cat Scan 08/01/23 08:[address] cervical spine wo con Stat Cat Scan 08/01/23 05:[address] head/brain wo con Stat Cat Scan 08/01/23 05:29 Completed CBC w/Auto Diff [Complete Blood Count Auto Diff] Stat Lab 08/01/23 06:35 Completed CMP [Comprehensive Metabolic Panel] Stat Lab 08/01/23 06:35 Completed Medical Decision Narrative: 87-year-old male with history of Alzheimer's presents with mild neck trauma after slipping off the bed and landing with his neck on the bed rail. History was obtained interactive discussion with EMS, nursing facility. On arrival, patient is overall, hearing stable, generally well-appearing alert and interactive, moving all extremities spontaneously. Full physical exam performed and significant for erythema over the anterior neck. Differential includes but is not limited to facture, dislocation, vascular trauma, intracranial trauma. Workup initiated including CT head, CT C-spine, CTA head neck CBC CMP. At this time care handed off to oncoming physician. Pancho: I assumed primary responsibility for this patient after signout from previous physician. Independent rotation of CTs demonstrated incorrect contrast timing and nonopacification of vessels. CT head normal. CTs were ordered again. CTA of the head and neck repeat negative. Because patient at baseline without signs or symptoms of clinical decompensation, deemed appropriate for discharge. Results were relayed to patient family who voiced understanding and were agreeable to outpatient management and follow up. I discussed my clinical impression with patient family and answered all questions. At this time, the evidence for any other entities in the differential is insufficient to warrant any further testing or ED observation. This was explained as well. Advisory was given that persistent or worsening symptoms require further evaluation. I confirmed the understanding of this discussion. Procedures <Gautam Weber MD - Last Filed: 08/01/23 07:52> Risk/Benefits of Procedure(s) Were Explained: Yes Critical Care <Gautam Weber MD - Last Filed: 08/01/23 07:52> Critical Care Time Critical Care Time: No
--- NOTE | 2023-08-01 06:40 | PC.NURSE ---
blood collected and sent to lab.
[2023-08-01 06:52] LABS: Basophils # 0.1 K/mm3 (0-0.2); Basophils % 0.8 % (0.1-2.0); Eosinophils # 0.2 K/mm3 (0.0-0.4); Hematocrit 47.5 % (42.0-52.0); Hemoglobin 14.9 g/dL (14.1-18.0); Lymphocytes # 1.4 K/mm3 (0.7-4.5); Lymphocytes % 11.9 % (10-50); Mean Corpuscular HGB Conc 31.4 g/dL (31.8-35.4); Mean Corpuscular Hemoglobin 30.6 pg (27.0-31.2); Mean Corpuscular Volume 97.5 fl (80-94); Mean Platelet Volume 8.5 fl (7.4-10.4); Monocytes # 0.5 K/mm3 (0.1-1.0); Monocytes % 4.6 % (1.7-9.3); Neutrophils # 9.3 K/mm3 (1.8-7.8); Neutrophils % 80.7 % (37.0-80.0); Platelet Count 222 K/mm3 (142-424); Red Blood Count 4.87 M/mm3 (4.60-6.20); Red Cell Distribution Width 14.1 % (11.5-17.5); White Blood Count 11.5 K/mm3 (4.8-10.8)
[2023-08-01 06:53] LABS: Chloride 103 mmol/L (98-107); Sodium 135 mmol/L (136-145)
[2023-08-01 06:54] LABS: Potassium 5.3 mmoL/L (3.5-5.1)
[2023-08-01 06:56] LABS: Alanine Aminotransferase 25 U/L (12-78); Alkaline Phosphatase 158 U/L (38-126); Aspartate Amino Transferase 34 U/L (17-59); Bilirubin,Total 1.2 mg/dl (0.2-1.3); Blood Urea Nitrogen 35 mg/dl (9-20); Creatinine Clearance Estimated 53 mL/min (50-200); Estimated Glomerular Filt Rate 48 ml/min (>60); GFR (African American) 58 ML/MIN (>60)
[2023-08-01 06:57] LABS: Albumin Level 3.8 g/dl (3.5-5.0); Albumin/Globulin Ratio 1.3 (1.1-1.8); Anion Gap 9.3 mEq/L (5-15); Calcium 9.3 mg/dl (8.4-10.2); Carbon Dioxide 28 mmol/L (22.0-30.0); Globulin 2.9 g/dL (1.3-3.2); Glucose 179 mg/dl (74-100); Total Protein,Serum 6.7 g/dl (6.3-8.2)
--- NOTE | 2023-08-01 07:05 | PC.NURSE ---
pt gone to ct
--- NOTE | 2023-08-01 07:31 | PC.NURSE ---
pt arrived back to room from ct
[2023-08-01] MEDS: SODIUM CHLORIDE 0.9% 10ML SYR (RAD ONLY) 10 ML IV (07:39)
[2023-08-01] MEDS: IOPAMIDOL-370 (76%);100ML BOTTLE 100 ML IV (07:39)
[2023-08-01] MEDS: 0.9 % SODIUM CHLORIDE 50 ML VIAL IV (07:39)
--- NOTE | 2023-08-01 08:52 | CT_ITS ---
PROCEDURE INFORMATION: Exam: CTA Neck With Contrast Exam date and time: 08/01/2023 8:13 AM Age: 87 years old Clinical indication: Injury or trauma; Fall; Blunt trauma; Head and neck; Additional info: Fall, pt's head was hung in bed rail TECHNIQUE: Imaging protocol: Computed tomographic angiography of the neck with contrast. Exam focused on the cervical segments of the vasculature. 3D rendering (Not supervised by radiologist): MIP and/or 3D reconstructed images were created by the technologist. Radiation optimization: All CT scans at this facility use at least one of these dose optimization techniques: automated exposure control; mA and/or kV adjustment per patient size (includes targeted exams where dose is matched to clinical indication); or iterative reconstruction. Contrast material: ISOVUE 370; Contrast volume: 100 ml; Contrast route: INTRAVENOUS (IV); COMPARISON: 1. (Scanogram, HEAD, CTA HEAD/NECK) 08/01/2023 8:[address] CERVICAL SPINE WO CON 08/01/2023 7:12 AM 3. Degenerative changes of the spine. FINDINGS: Right common carotid artery: Calcified atherosclerosis within the distal right common carotid artery and carotid bulb with 50% luminal narrowing. Right internal carotid artery: Calcified and noncalcified atherosclerosis proximal right ICA with 50% luminal narrowing. Right external carotid artery: No occlusion or stenosis of the origin. Left common carotid artery: Calcified atherosclerosis distal left common carotid artery and carotid bulb with 60% luminal narrowing. Left internal carotid artery: Calcified atherosclerosis left proximal ICA with 40% luminal narrowing. Left external carotid artery: No occlusion or stenosis of the origin. Right vertebral artery: No stenosis. No dissection or occlusion. Left vertebral artery: No stenosis. No dissection or occlusion. Aorta: Atherosclerotic changes of the aorta and branch vessels. Soft tissues: Normal. No significant soft tissue swelling. Bones/joints: No acute fracture. Esophagus: Gas within the upper thoracic esophagus. IMPRESSION: No arterial injury identified. Atherosclerosis bilaterally as detailed above. REFERENCES: NASCET CRITERIA. The degree of stenosis in the cervical segment of the internal carotid artery is based on NASCET criteria. Normal is no stenosis. Mild is less than 50% stenosis. Moderate is 50-69% stenosis. Severe is 70% to 99% stenosis. Total occlusion is no detectable patent lumen.
[2023-08-01] MEDS: LACTATED RINGERS 1000ML 1,000 ML 999 ML IV (09:20)
== END 2023-08-01 10:25 | disposition home or self-care (01) ==
PROVIDERS: Emergency Medicine; Emergency Provider Emergency Medicine
DX: S19.9XXA Unspecified injury of neck, initial encounter (principal); W06.XXXA Fall from bed, initial encounter; G30.9 Alzheimer's disease, unspecified
CPT/HCPCS: 70450; 70496; 70498; 72125; 80053; 85025; 96360; 96361; 99285; Q9967

== ENCOUNTER 2024-12-01 12:34 | Outpatient (CLI) | payer OTHER, SELFPAY ==
--- OUTSIDE RECORDS SUMMARY | 2024-12-01 12:36 | XMS_ITS ---
Author Name Auto Generated, Auto Generated Organization [facility] Address [address] [place] [address] Phone [phone] Care Team Providers Care Die Casting Machine Setter Name Role Phone MarMariposaLiana Unavailable [phone] Micheal Sesay Unavailable [phone] Jaiden Stroud Unavailable Functional Status Narrative Start Date End Date Bladder incontinence ThuApr 30 07:00:00 EST 2 Endurance ThuApr 30 07:00:00 EST 2021 Ambulation ThuApr 30 07:00:00 EST 2021 Bowel incontinence ThuApr 30 07:00:00 EST 2021 Legally Blind ThuApr 30 07:00:00 EST 2021 Mental Status No Results Allergies and Intolerances Name Onset Date Reaction Severity No Known Allergies (Allergy) ThuApr 30 14:17:00 EST 2021 Encounters Program Name Primary Diagnosis Admission Date/Time Dis charge Date/Time Home-based Hospice Senile degeneration of brain, not elsewhere classified ThuNov 17 20:00:00 EDT 2023 Medications Medication Directions Start Date End Date Valtrex 1 gram tablet 1 Tablet Oral 2 Ti mes Daily for 10 Days Indication: Shingles ThuOct 11 00:00:00 EDT 2024 Ale Oct 20 23:59:00 EDT 2024 Betadine 10 % topical solution 1 Application Topical PRN 1 Time Daily Indication: to scab on left great toe area ThuMar 02 00:00:00 EST 2023 Debrox 6.5 % ear drops 5 Drop Right Ear 2 Times Daily for 14 Days Indication: wax build up ThuFeb 15 00:00:00 EDT 2023Feb 28 23:59:00 EST 2023 benzonatate 200 mg capsule 1 Capsule Ora l PRN 3 Times Daily Indication: cough ThuFeb 02 00:00:00 EDT 2023 Fluzone High-Dose Quad (PF) 240 mcg/0.7 mL IM syringe 0.7 Milliliter Intramuscular 1 Time Daily Indication: flu shot given at dr's office ThuJan 27 00:00:00 EDT 2023Feb 23 13:07:00 EST 2023 ibuprofen 200 mg tablet 1 Tablet Oral SD N Every 6 Hours Indication: mild pain. May take 1-2 tabs q6h prn ThuJan 26 00:00:00 EDT 2023 ibuprofen 200 mg tablet 1 Tablet Oral SD N Every 6 Hours Indication: pain 200-400 mg ThuJan 07 00:00:00 EDT 2023Jan 26 13:42:00 EDT 2023 diclofenac 1 % topical gel 2 Gram Topica l PRN 4 Times Daily Indication: arthritic pain ThuDec 29 00:00:00 EDT 2023 Imodium A-D 2 mg capsule 1 Capsule Oral PRN Indication: 2-4 mg capsules after each loose stool no more 16 mg in 24 hr period ThuDec 08 00:00:00 EDT 2023 Protonix 40 mg tablet,delayed release 1 Tablet Oral 1 Time Daily Indication: hx diverticulosis/ stomach problems ThuNov 18 00:00:00 EDT 2023 metFORMIN 1,000 mg tablet 1 Tablet Oral 1 Time Daily Indication: diabetes ThuNov 18 00:00:00 EDT 2023 aspirin 81 mg tablet,delayed release 1 Tablet Oral 1 Time Daily Indication: hx stroke ThuNov 18 00:00:00 EDT 2023 omeprazole 20 mg capsule,delayed release 1 Capsule Oral 1 Time Daily Indication: Stomach problems Hx GI bleed ThuNov 18 00:00:00 EDT 2023 memantine 5 mg tablet 1 Tablet Oral 1 Ti me Daily Indication: confusion ThuNov 18 00:00:00 EDT 2023Feb 24 15:56:00 EST 2023 Januvia 100 mg tablet 1 Tablet Oral 1 Ti me Daily Indication: diabetes ThuNov 18 00:00:00 EDT 2023 atorvastatin 40 mg tablet 1 Tablet Oral Hour Of Sleep Indication: hyperlipidemia ThuNov 18 00:00:00 EDT 2023 LORazepam 0.5 mg tablet 1 Tablet Oral SD N 3 Times Daily Indication: anxiety, restlessness ThuNov 18 00:00:00 EDT 2023 [place] 5 mg-325 mg tablet 1 Tablet Oral P RN 2 Times Daily Indication: pain/soa ThuNov 18 00:00:00 EDT 2023 Nystop 100,000 unit/gram topical powder 1 Application Topical PRN 3 Times Daily Indication: skin irritation folds ThuNov 18 00:00:00 EDT 2023 nystatin 100,000 unit/gram topical cream 1 Application Topical PRN 3 Times Daily Indication: skin irritation ThuNov 18 00:00:00 EDT 2023 acetaminophen 500 mg tablet 2 Tablet Oral PRN Every 6 Hours Indication: pain/fever no more 3000 mg in 24 hrs ThuNov 18 00:00:00 EDT 2023 Betadine Swabsticks 10 % 1 application S WAB, MEDICATED Topical Every 1 Day Indication: wound, apply betadine to necrotic right heel wound and around the edges daily with wound care ThuJul 29 00:00:00 EDT 2022Oct 20 00:00:00 EDT 2022 sodium chloride 0.9 % irrigation solution 1 application SOLUTION, IRRIGATION Topical Every 1 Day Indication: wound, cleanse right heel wound daily with normal saline ThuJul 28 00:00:00 EDT 2022Oct 20 00:00:00 EDT 2022 SantyL 250 unit/gram topical ointment topical OINTMENT (GRAM) Topical Every 1 Day Indication: right foot wound ThuJul 22 00:00:00 EDT 2022Jul 29 20:40:00 EDT 2022 FlagyL 250 mg tablet 500mg TABLET Topica l Every 1 Day Indication: right foot wound ThuJul 22 00:00:00 EDT 2022Jul 29 20:40:00 EDT 2022 cefdinir 300 mg capsule 300mg CAPSULE Or al 2 Times Daily Indication: right foot wound ThuJul 22 00:00:00 EDT 2022Aug 05 10:57:00 EDT 2022 cefdinir 300 mg capsule 1 capsule CAPSUL E Oral 2 Times Daily for 7 Days Indication: infection rt heel ThuMay 27 00:00:00 EST 2022Jun 02 23:59:00 EST 2022 QUEtiapine 25 mg tablet 1 tablet TABLET Oral PRN Every 6 Hours Indication: restlessness, agitation ThuMay 27 00:00:00 EST 2022Oct 20 00:00:00 EDT 2022 Zofran ODT 4 mg disintegrating tablet 1 tablet TABLET,DISINTEGRATING Oral PRN Every 6 Hours Indication: N/V ThuFeb 28 00:00:00 EST 2021Oct 20 00:00:00 EDT 2022 FluZONE High-Dose Quad (PF) 240 mcg/0.7 mL IM syringe 0.5 ml SYRINGE (ML) Intramuscular Every 1 Day for 1 Day Indication: flu shot ThuJan 15 00:00:00 EDT 2021Jan 15 23:59:00 EDT 2021 Januvia 100 mg tablet 1 tablet TABLET Or al Every 1 Day Indication: diabetes ThuDec 26 00:00:00 EDT 2021Oct 20 00:00:00 EDT 2022 metFORMIN 1,000 mg tablet 1 tablet TABLE T Oral Every 1 Day Indication: diabetes ThuDec 26 00:00:00 EDT 2021Oct 20 00:00:00 EDT 2022 Cipro 500 mg tablet 1 tablet TABLET Oral 2 Times Daily for 7 Days Indication: UTI ThuDec 19 00:00:00 EDT 2021Dec 25 23:59:00 EDT 2021 Janumet XR 100 mg-1,000 mg tablet,extended release 1 tablet TABLET,EXTENDED RELEASE MULTIPHASE 24 HR Oral Every 1 Day Indication: diabetes ThuDec 16 00:00:00 EDT 2021 Ale Dec 26 14:48:00 EDT 2021 LORazepam 0.5 mg tablet 1 tablet TABLET Oral 3 Times Daily, PRN Indication: anxiety/ restlessness ThuJul 25 00:00:00 EDT 2021Oct 20 00:00:00 EDT 2022 Men's Multivitamin 400 mcg-20 mcg-300 mcg tablet 1 tablet TABLET Oral Every 1 Day Indication: supplement ThuMay 21 00:00:00 EST 2021Oct 20 00:00:00 EDT 2022 Aspercreme 10 % topical 1 application CR EAM (GRAM) Topical PRN Every 12 Hours Indication: for joint pain ThuMay 17 00:00:00 EST 2021Oct 20 00:00:00 EDT 2022 acetaminophen 500 mg tablet 2 tablets TABLET Oral Every 8 Hours, PRN Indication: pain/ fever, no more than 3000 mg tylenol in a 24 hr period ThuMay 14 00:00:00 EST 2021Oct 20 00:00:00 EDT 2022 fluconazole 150 mg tablet 1 tablet TABLE T Oral Every 1 Day for 3 Days Indication: For yeast rash ThuMay 09 00:00:00 EST 2021May 11 23:59:00 EST 2021 Nystop 100,000 unit/gram topical powder small amt POWDER (GRAM) Topical 4 Times Daily Indication: Skin irritation ThuMay 07 00:00:00 EST 2021Oct 20 00:00:00 EDT 2022 [place] 5 mg-325 mg tablet 1 tablet TABLET Oral 2 Times Daily, PRN Indication: severe pain/ soa ThuMay 07 00:00:00 EST 2021Oct 20 00:00:00 EDT 2022 LORazepam 0.5 mg tablet 1 tablet TABLET Oral Hour Of Sleep, PRN Indication: restlessness/ agitation ThuMay 07 00:00:00 EST 2021Jul 25 12:58:00 EDT 2021 zinc 50 mg tablet 1 tablet TABLET Oral Every 1 Day Indication: supplement ThuApr 30 00:00:00 EST 2021May 21 14:17:00 EST 2021 escitalopram 5 mg tablet 1 tablet TABLET Oral Every 1 Day Indication: antidepressant ThuApr 30 00:00:00 EST 2021Oct 20 00:00:00 EDT 2022 Vitamin C 1,000 mg tablet 1 tablet TABLE T Oral Every 1 Day Indication: supplement ThuApr 30 00:00:00 EST 2021May 21 14:17:00 EST 2021 Protonix 40 mg tablet,delayed release 1 tablet TABLET, DELAYED RELEASE (ENTERIC COATED) Oral Every 1 Day Indication: stomach protection ThuApr 30 00:00:00 EST 2021Oct 20 00:00:00 EDT 2022 Januvia 100 mg tablet 1 tablet TABLET Or al Every 1 Day Indication: diabetes ThuApr 30 00:00:00 EST 2021Dec 16 16:25:00 EDT 2021 tamsulosin 0.4 mg capsule 1 tablet CAPSU LE Oral Hour Of Sleep Indication: prostrate disorder ThuApr 30 00:00:00 EST 2021Oct 20 00:00:00 EDT 2022 atorvastatin 10 mg tablet 1 tablet TABLE T Oral Hour Of Sleep Indication: high cholesterol ThuApr 30 00:00:00 EST 2021Jun 25 16:21:00 EST 2021 omeprazole 20 mg capsule,delayed release 1 capsule CAPSULE,DELAYED RELEASE (ENTERIC COATED) Oral Hour Of Sleep Indication: stomach protection ThuApr 30 00:00:00 EST 2021Oct 20 00:00:00 EDT 2022 donepeziL 10 mg tablet 1 tablet TABLET O ral Every 1 Day Indication: dementia ThuApr 30 00:00:00 EST 2021Jun 25 16:21:00 EST 2021 memantine 5 mg tablet 1 tablet TABLET Or al Hour Of Sleep Indication: dementia ThuApr 30 00:00:00 EST 2021Oct 20 00:00:00 EDT 2022 melatonin 3 mg tablet 1 tablet TABLET Or al Hour Of Sleep, PRN Indication: trouble sleeping[ can use 3-5 mg] ThuApr 30 00:00:00 EST 2021Oct 20 00:00:00 EDT 2022 cyanocobalamin (vit B-12) 1,000 mcg/mL injection solution 1 ml VIAL (ML) Intramuscular Every 1 Month Indication: supplement ThuApr 30 00:00:00 EST 2021Jun 25 16:21:00 EST 2021 furosemide 20 mg tablet 1 tablet TABLET Oral Every 1 Day, PRN Indication: edema ThuApr 30 00:00:00 EST 2021Oct 20 00:00:00 EDT 2022 Imodium A-D 2 mg capsule 1 capsule CAPSU LE Oral Every 4 Hours, PRN Indication: diarrhea ThuApr 30 00:00:00 EST 2021Oct 20 00:00:00 EDT 2022 acetaminophen 325 mg tablet 2 tablets TABLET Oral Every 4 Hours, PRN Indication: pain, no more 3000 mg in a 2 4hr period ThuApr 30 00:00:00 EST 2021May 14 12:58:00 EST 2021 Levaquin 500 mg tablet 1 tablet TABLET O ral Every 1 Day for 4 Days Indication: infection [ already purchased. To finish out total 9 days] ordered 04-25-21ThuApr 30 00:00:00 EST 2021May 03 23:59:00 EST 2021 metroNIDAZOLE 500 mg tablet 1 tablet TABLET Oral Every 1 Day for 4 Days Indication: infection total 9 days, started on 04-25-21 already purchased ThuApr 30 00:00:00 EST 2021May 03 23:59:00 EST 2021 Treatment Plan Problems No Known Problems Vital Signs Vital Sign Measurement Date Systolic blood pressure 108 mm[Hg] ThuJan 26 07:30:00 EDT 2023 Diastolic blood pressure 76 mm[Hg] ThuJan 26 07:30:00 EDT 2023 Respiratory rate 20 /min ThuJan 26 07:3 0:00 EDT 2023 Heart rate 90 /min ThuJan 26 07:30 :00 EDT 2023 Systolic blood pressure 128 mm[Hg] Thub 08:30:00 EST 2024 Diastolic blood pressure 70 mm[Hg] ThuJun 01 08:30:00 EST 2024 Respiratory rate 20 /min ThuJun 01 08:3 0:00 EST 2024 Heart rate 80 /min ThuJun 01 08:30 :00 EST 2024 Systolic blood pressure 108 mm[Hg] ThuSep 30 09:00:00 EDT 2024 Diastolic blood pressure 70 mm[Hg] ThuSep 30 09:00:00 EDT 2024 Respiratory rate 20 /min ThuSep 30 09:0 0:00 EDT 2024 Heart rate 76 /min ThuSep 30 09:00 :00 EDT 2024 Systolic blood pressure 120 mm[Hg] Thub 07:30:00 EST 2024 Diastolic blood pressure 64 mm[Hg] Thub 07:30:00 EST 2024 Respiratory rate 16 /min Thub 07:3 0:00 EST 2024 Heart rate 94 /min Thub 07:30 :00 EST 2024 Systolic blood pressure 118 mm[Hg] ThuSeptember 07 09:30:00 EDT 2024 Diastolic blood pressure 70 mm[Hg] ThuSeptember 07 09:30:00 EDT 2024 Respiratory rate 20 /min ThuSeptember 07 09:3 0:00 EDT 2024 Heart rate 76 /min ThuSeptember 07 09:30 :00 EDT 2024 Systolic blood pressure 122 mm[Hg] ThuJan 12 07:45:00 EDT 2023 Diastolic blood pressure 72 mm[Hg] ThuJan 12 07:45:00 EDT 2023 Respiratory rate 20 /min Thu Sep 07:4 5:00 EDT 2023 Heart rate 84 /min ThuJan 12 07:45 :00 EDT 2023 Systolic blood pressure 108 mm[Hg] ThuFeb 09 07:40:00 EDT 2023 Diastolic blood pressure 68 mm[Hg] ThuFeb 09 07:40:00 EDT 2023 Respiratory rate 20 /min ThuFeb 09 07:4 0:00 EDT 2023 Heart rate 76 /min ThuFeb 09 07:40 :00 EDT 2023 Systolic blood pressure 122 mm[Hg] ThuApr 27 05:15:00 EST 2024 Diastolic blood pressure 62 mm[Hg] ThuApr 27 05:15:00 EST 2024 Respiratory rate 20 /min ThuApr 27 05:1 5:00 EST 2024 Heart rate 84 /min ThuApr 27 05:15 :00 EST 2024 Systolic blood pressure 102 mm[Hg] ThuMay 16 08:20:00 EST 2024 Respiratory rate 20 /min ThuMay 16 08:2 0:00 EST 2024 Heart rate 80 /min ThuMay 16 08:20 :00 EST 2024 Diastolic blood pressure mm[Hg] ThuMay 16 08:20:00 EST 2024 Systolic blood pressure 122 mm[Hg] ThuFeb 02 08:20:00 EDT 2023 Diastolic blood pressure 70 mm[Hg] ThuFeb 02 08:20:00 EDT 2023 Respiratory rate 20 /min ThuFeb 02 08:2 0:00 EDT 2023 Heart rate 84 /min ThuFeb 02 08:20 :00 EDT 2023 Systolic blood pressure 106 mm[Hg] ThuMay 09 09:50:00 EST 2024 Respiratory rate 20 /min ThuMay 09 09:5 0:00 EST 2024 Heart rate 84 /min ThuMay 09 09:50 :00 EST 2024 Diastolic blood pressure mm[Hg] ThuMay 09 09:50:00 EST 2024 Systolic blood pressure 128 mm[Hg] ThuAug 17 07:25:00 EDT 2024 Diastolic blood pressure 72 mm[Hg] ThuAug 17 07:25:00 EDT 2024 Respiratory rate 20 /min ThuAug 17 07:2 5:00 EDT 2024 Heart rate 80 /min ThuAug 17 07:25 :00 EDT 2024 Systolic blood pressure 110 mm[Hg] ThuApr 06 06:00:00 EST 2023 Diastolic blood pressure 70 mm[Hg] ThuApr 06 06:00:00 EST 2023 Respiratory rate 20 /min ThuApr 06 06:0 0:00 EST 2023 Heart rate 88 /min ThuApr 06 06:00 :00 EST 2023 Systolic blood pressure 102 mm[Hg] ThuJan 19 07:00:00 EDT 2023 Diastolic blood pressure 70 mm[Hg] ThuJan 19 07:00:00 EDT 2023 Respiratory rate 20 /min ThuJan 19 07:0 0:00 EDT 4 Heart rate 100 /min ThuJan 19 07:00 :00 EDT 2023 Systolic blood pressure 158 mm[Hg] Fri Sep 20 06:00:00 EDT 2023 Diastolic blood pressure 80 mm[Hg] Thu Sep 20 06:00:00 EDT 2023 Respiratory rate 20 /min Thu Sep 20 06:0 0:00 EDT 2023 Heart rate 68 /min Thu Sep 20 06:00 :00 EDT 2023 Systolic blood pressure 128 mm[Hg] ThuDec 08 07:50:00 EDT 2023 Diastolic blood pressure 74 mm[Hg] ThuDec 08 07:50:00 EDT 2023 Respiratory rate 20 /min ThuDec 08 07:5 0:00 EDT 2023 Heart rate 72 /min ThuDec 08 07:50 :00 EDT 202 Systolic blood pressure 118 mm[Hg] Thu 20 12:00:00 EDT 2024 Diastolic blood pressure 70 mm[Hg] ThuOct 07 12:00:00 EDT 2024 Heart rate 72 /min ThuOct 07 12:00 :00 EDT 2024 Systolic blood pressure 118 mm[Hg] ThuNov 09 10:30:00 EDT 2024 Diastolic blood pressure 70 mm[Hg] ThuNov 09 10:30:00 EDT 2024 Respiratory rate 20 /min ThuNov 09 10:3 0:00 EDT 2024 Heart rate 72 /min ThuNov 09 10:30 :00 EDT 2024 Systolic blood pressure 122 mm[Hg] ThuApr 11 09:45:00 EST 2023 Diastolic blood pressure 70 mm[Hg] ThuApr 11 09:45:00 EST 2023 Respiratory rate 20 /min ThuApr 11 09:4 5:00 EST 2023 Heart rate 88 /min ThuApr 11 09:45 :00 EST 2023 Systolic blood pressure 128 mm[Hg] ThuAugust 29 08:40:00 EDT 2024 Diastolic blood pressure 70 mm[Hg] ThuAugust 29 08:40:00 EDT 2024 Respiratory rate 20 /min ThuAugust 29 08:4 0:00 EDT 2024 Systolic blood pressure 122 mm[Hg] ThuJul 11 09:00:00 EDT 2024 Diastolic blood pressure 80 mm[Hg] ThuJul 11 09:00:00 EDT 2024 Heart rate 88 /min ThuJul 11 09:00 :00 EDT 2024 Systolic blood pressure 132 mm[Hg] ThuMar 09 05:05:00 EST 2023 Diastolic blood pressure 70 mm[Hg] ThuMar 09 05:05:00 EST 2023 Respiratory rate 20 /min ThuMar 09 05:0 5:00 EST 2023 Heart rate 80 /min ThuMar 09 05:05 :00 EST 2023 Systolic blood pressure 130 mm[Hg] ThuNov 01 09:45:00 EDT 2024 Diastolic blood pressure 82 mm[Hg] ThuNov 01 09:45:00 EDT 2024 Respiratory rate 20 /min ThuNov 01 09:4 5:00 EDT 2024 Heart rate 76 /min ThuNov 01 09:45 :00 EDT 2024 Systolic blood pressure 112 mm[Hg] ThuMar 23 07:52:00 EST 2023 Diastolic blood pressure 62 mm[Hg] ThuMar 23 07:52:00 EST 2023 Respiratory rate 17 /min ThuMar 23 07:5 2:00 EST 2023 Heart rate 50 /min ThuMar 23 07:52 :00 EST 2023 Systolic blood pressure 128 mm[Hg] ThuApr 18 05:40:00 EST 2023 Diastolic blood pressure 70 mm[Hg] ThuApr 18 05:40:00 EST 2023 Respiratory rate 20 /min ThuApr 18 05:4 0:00 EST 2023 Heart rate 88 /min ThuApr 18 05:40 :00 EST 2023 Systolic blood pressure 118 mm[Hg] ThuFeb 23 07:00:00 EST 2023 Diastolic blood pressure 62 mm[Hg] ThuFeb 23 07:00:00 EST 2023 Respiratory rate 20 /min ThuFeb 23 07:0 0:00 EST 2023 Heart rate 88 /min ThuFeb 23 07:00 :00 EST 2023 Systolic blood pressure 122 mm[Hg] ThuJul 06 08:00:00 EDT 2024 Diastolic blood pressure 70 mm[Hg] ThuJul 06 08:00:00 EDT 2024 Respiratory rate 20 /min ThuJul 06 08:0 0:00 EDT 2024 Heart rate 80 /min ThuJul 06 08:00 :00 EDT 2024 Systolic blood pressure 118 mm[Hg] ThuMar 02 05:30:00 EST 2023 Diastolic blood pressure 80 mm[Hg] ThuMar 02 05:30:00 EST 2023 Respiratory rate 20 /min ThuMar 02 05:3 0:00 EST 2023 Heart rate 76 /min ThuMar 02 05:30 :00 EST 2023 Systolic blood pressure 122 mm[Hg] ThuSeptember 14 09:45:00 EDT 2024 Diastolic blood pressure 70 mm[Hg] ThuSeptember 14 09:45:00 EDT 2024 Respiratory rate 20 /min ThuSeptember 14 09:4 5:00 EDT 202 Heart rate 76 /min ThuSeptember 14 09:45 :00 EDT 202 Systolic blood pressure 100 mm[Hg] ThuMar 21 08:45:00 EST 2023 Diastolic blood pressure 50 mm[Hg] ThuMar 21 08:45:00 EST 2023 Respiratory rate 24 /min ThuMar 21 08:4 5:00 EST 2023 Heart rate 130 /min ThuMar 21 08:45 :00 EST 2023 Systolic blood pressure 148 mm[Hg] ThuOct 17 09:45:00 EDT 2024 Diastolic blood pressure 82 mm[Hg] ThuOct 17 09:45:00 EDT 2024 Respiratory rate 20 /min ThuOct 17 09:4 5:00 EDT 2024 Heart rate 88 /min ThuOct 17 09:45 :00 EDT 2024 Systolic blood pressure 116 mm[Hg] ThuAug 03 08:00:00 EDT 2024 Diastolic blood pressure 70 mm[Hg] ThuAug 03 08:00:00 EDT 2024 Respiratory rate 20 /min ThuAug 03 08:0 0:00 EDT 2024 Heart rate 76 /min ThuAug 03 08:00 :00 EDT 2024 Systolic blood pressure 122 mm[Hg] ThuAugust 22 09:00:00 EDT 2024 Diastolic blood pressure 70 mm[Hg] ThuAugust 22 09:00:00 EDT 2024 Respiratory rate 20 /min ThuAugust 22 09:0 0:00 EDT 2024 Heart rate 76 /min ThuAugust 22 09:00 :00 EDT 2024 Systolic blood pressure 112 mm[Hg] ThuMay 23 08:40:00 EST 2024 Diastolic blood pressure 60 mm[Hg] ThuMay 23 08:40:00 EST 2024 Respiratory rate 20 /min ThuMay 23 08:4 0:00 EST 2024 Heart rate 84 /min ThuMay 23 08:40 :00 EST 2024 Systolic blood pressure 126 mm[Hg] ThuSep 21 08:53:00 EDT 2024 Diastolic blood pressure 68 mm[Hg] ThuSep 21 08:53:00 EDT 2024 Respiratory rate 18 /min ThuSep 21 08:5 3:00 EDT 2024 Heart rate 78 /min ThuSep 21 08:53 :00 EDT 2024 Systolic blood pressure 108 mm[Hg] Wed Sep 11 07:00:00 EDT 2023 Diastolic blood pressure 68 mm[Hg] Wed Sep 07:00:00 EDT 2023 Respiratory rate 20 /min Wed Sep 11 07:0 0:00 EDT 4 Heart rate 76 /min Wed Sep 11 07:00 :00 EDT 2023 Systolic blood pressure 112 mm[Hg] Mon Aug 08 09:00:00 EDT 2024 Diastolic blood pressure 62 mm[Hg] ThuAug 08 09:00:00 EDT 2024 Respiratory rate 20 /min ThuAug 08 09:0 0:00 EDT 2024 Heart rate 76 /min ThuAug 08 09:00 :00 EDT 2024 Systolic blood pressure 132 mm[Hg] ThuNov 30 11:12:00 EDT 2024 Diastolic blood pressure 82 mm[Hg] ThuNov 30 11:12:00 EDT 2024 Respiratory rate 18 /min ThuNov 30 11:1 2:00 EDT 2024 Heart rate 76 /min ThuNov 30 11:12 :00 EDT 2024 Systolic blood pressure 114 mm[Hg] ThuOct 26 07:00:00 EDT 2024 Diastolic blood pressure 70 mm[Hg] ThuOct 26 07:00:00 EDT 2024 Respiratory rate 20 /min ThuOct 26 07:0 0:00 EDT 2024 Heart rate 76 /min ThuOct 26 07:00 :00 EDT 2024 Systolic blood pressure 120 mm[Hg] ThuSep 28 09:15:00 EDT 2024 Diastolic blood pressure 70 mm[Hg] ThuSep 28 09:15:00 EDT 2024 Respiratory rate 20 /min ThuSep 28 09:1 5:00 EDT 2024 Heart rate 80 /min ThuSep 28 09:15 :00 EDT 2024 Systolic blood pressure 138 mm[Hg] ThuNov 16 08:15:00 EDT 2024 Diastolic blood pressure 80 mm[Hg] ThuNov 16 08:15:00 EDT 2024 Respiratory rate 20 /min ThuNov 16 08:1 5:00 EDT 2024 Heart rate 80 /min ThuNov 16 08:15 :00 EDT 2024 Systolic blood pressure 110 mm[Hg] ThuMay 04 06:50:00 EST 2024 Diastolic blood pressure 60 mm[Hg] ThuMay 04 06:50:00 EST 2024 Respiratory rate 20 /min ThuMay 04 06:5 0:00 EST 2024 Heart rate 84 /min ThuMay 04 06:50 :00 EST 2024 Respiratory rate 18 /min ThuOct 10 05:2 7:00 EDT 2024 Systolic blood pressure 122 mm[Hg] ThuMar 28 08:40:00 EST 2023 Diastolic blood pressure 72 mm[Hg] ThuMar 28 08:40:00 EST 2023 Respiratory rate 20 /min ThuMar 28 08:4 0:00 EST 2023 Heart rate 88 /min ThuMar 28 08:40 :00 EST 2023 Systolic blood pressure 132 mm[Hg] ThuFeb 14 07:15:00 EDT 2023 Diastolic blood pressure 88 mm[Hg] ThuFeb 14 07:15:00 EDT 2023 Respiratory rate 20 /min ThuFeb 14 07:1 5:00 EDT 202 Heart rate 76 /min ThuFeb 14 07:15 :00 EDT 202 Systolic blood pressure 122 mm[Hg] ThuJun 22 07:10:00 EST 2024 Diastolic blood pressure 70 mm[Hg] ThuJun 22 07:10:00 EST 2024 Respiratory rate 20 /min ThuJun 22 07:1 0:00 EST 2024 Heart rate 80 /min ThuJun 22 07:10 :00 EST 2024 Systolic blood pressure 130 mm[Hg] ThuMay 27 08:55:00 EST 2024 Diastolic blood pressure 80 mm[Hg] ThuMay 27 08:55:00 EST 202 Respiratory rate 20 /min ThuMay 27 08:5 5:00 EST 2024 Heart rate 84 /min ThuMay 27 08:55 :00 EST 2024 Systolic blood pressure 132 mm[Hg] ThuJan 03 07:15:00 EDT 2023 Diastolic blood pressure 80 mm[Hg] ThuJan 03 07:15:00 EDT 2023 Respiratory rate 20 /min Mon Sep 07:1 5:00 EDT 2023 Heart rate 88 /min Thu Sep 07:15 :00 EDT 2024 Systolic blood pressure 148 mm[Hg] ThuJul 25 10:02:00 EDT 2024 Diastolic blood pressure 82 mm[Hg] ThuJul 25 10:02:00 EDT 2024 Heart rate 92 /min ThuJul 25 10:02 :00 EDT 2024 Systolic blood pressure 122 mm[Hg] ThuNov 23 09:00:00 EDT 2024 Diastolic blood pressure 78 mm[Hg] ThuNov 23 09:00:00 EDT 2024 Respiratory rate 20 /min ThuNov 23 09:0 0:00 EDT 2024 Heart rate 80 /min ThuNov 23 09:00 :00 EDT 2024 Systolic blood pressure 112 mm[Hg] ThuDec 15 07:45:00 EDT 2023 Diastolic blood pressure 72 mm[Hg] ThuDec 15 07:45:00 EDT 2023 Respiratory rate 20 /min ThuDec 15 07:4 5:00 EDT 2023 Heart rate 64 /min ThuDec 15 07:45 :00 EDT 2023 Systolic blood pressure 112 mm[Hg] Mon Feb 17 09:30:00 EST 2024 Diastolic blood pressure 70 mm[Hg] Thu Feb 17 09:30:00 EST 2024 Respiratory rate 20 /min Mon Feb 17 09:3 0:00 EST 2024 Heart rate 80 /min Thu Feb 17 09:30 :00 EST 2024 Systolic blood pressure 20 mm[Hg] Wed Sep 08:10:00 EDT 2023 Respiratory rate 20 /min Wed Sep 08:1 0:00 EDT 2023 Heart rate 68 /min Wed Sep 08:10 :00 EDT 2023 Diastolic blood pressure mm[Hg] Wed Dec 22 08:10:00 EDT 2023 Systolic blood pressure 110 mm[Hg] ThuJul 20 08:10:00 EDT 2024 Diastolic blood pressure 78 mm[Hg] ThuJul 20 08:10:00 EDT 2024 Respiratory rate 22 /min ThuJul 20 08:1 0:00 EDT 2024 Heart rate 82 /min ThuJul 20 08:10 :00 EDT 2024 Systolic blood pressure 132 mm[Hg] Thu Sep 07:00:00 EDT 2023 Diastolic blood pressure 70 mm[Hg] Thu Sep 07:00:00 EDT 2023 Respiratory rate 20 /min Thu Sep 07:0 0:00 EDT 2023 Heart rate 80 /min Thu Sep 07:00 :00 EDT 2023 Systolic blood pressure 116 mm[Hg] ThuOct 11 08:55:00 EDT 2024 Diastolic blood pressure 70 mm[Hg] ThuOct 11 08:55:00 EDT 2024 Respiratory rate 20 /min ThuOct 11 08:5 5:00 EDT 2024 Heart rate 92 /min ThuOct 11 08:55 :00 EDT 2024 Systolic blood pressure 128 mm[Hg] ThuJun 29 08:13:00 EDT 2024 Diastolic blood pressure 74 mm[Hg] ThuJun 29 08:13:00 EDT 2024 Respiratory rate 18 /min ThuJun 29 08:1 3:00 EDT 2024 Heart rate 78 /min ThuJun 29 08:13 :00 EDT 2024 Reason for Referral
[2024-12-01 12:44] LABS: Microscopic, Urine URINE MICROSCOPIC (MICROSCOPIC)
[2024-12-01 21:33] LABS: Bilirubin,Urine Negative (Negative); Color,Urine YELLOW (Yellow); Glucose,Urine (UA) Negative (Negative); Ketones,Urine Negative (Negative); Leukocyte Esterase,Urine 3+ (Negative); PH,Urine 6.5 (5.0-8.5); Protein,Urine 1+ (Negative); Specific Gravity, Urine 1.010 (1.005-1.030); Urobilinogen,Urine 0.2 EU/dl (0.2)
[2024-12-01 22:19] LABS: WBC,Urine TNTC #/hpf (0-3)
== END 2024-12-01 23:59 | disposition home or self-care (01) ==
PROVIDERS: PCP Internal Medicine Adolescent Medicine; Visit Provider Nurse Practitioner Family
DX: Z03.89 Encounter for observation for other suspected diseases and conditions ruled out (principal)
CPT/HCPCS: 81001; 87086